=== PATIENT | female | born 1960 | race Caucasian/White ===

== ENCOUNTER 2016-07-08 15:41 | Emergency (ER) | payer BC, MEDICAID ==
[2016-07-08] MEDS ORDERED: Adenosine 12 MG/4 ML SDV IVPUSH ONE (15:48)
[2016-07-08] MEDS ORDERED: Metoprolol Tartrate 25 MG Tab PO ONE (15:48)
--- NOTE | 2016-07-08 15:52 | EDM.PDOC ---
ED HPI GENERAL MEDICAL PROBLEM - General Stated Complaint: SVT Time Seen by Provider: 07/08/16 15:45 Source of Information: Reports: Patient History Limitations: Reports: No limitations - History of Present Illness INITIAL COMMENTS - FREE TEXT/NARRATIVE: Pt presents with racing heart and shortness of breath which started today morning and has not stopped. When it started in the morning her heart rate was in 160s.She did take all her meds in the morning. No nausea or vomiting. No chest pain. Does feel shortness of breath. Has had mild nasal congestion and mild cough for past 3 days. Pt does have history of SVT and was down at [facility] Emergency room on 06/24/16 and did receive Adenosine and the heart rate improved and patient felt better. - Related Data Allergies Allergy/AdvReac Type Severity Reaction Status Date / Time ibuprofen Allergy Abdominal Verified 02/19/16 11:15 Pain prednisone AdvReac Abdominal Verified 02/19/16 11:15 Cramps Home Meds: Home Meds Multivit/Iron/FA/K/Herb No.244 [Alive Women's Energy Mv Tablet] 1 tab PO DAILY 06/23/15 [History] Aspirin [Halfprin] 81 mg PO DAILY tab.ec 06/25/15 [Rx] Cyanocobalamin (Vitamin B12) [Vitamin B12] 1,000 mcg PO DAILY tablet 06/25/15 [ Rx] Metoprolol Tartrate [Lopressor] 25 mg PO BID tablet 06/25/15 [Rx] Omeprazole 20 mg PO ACBREAKFAST cap.cr 06/25/15 [Rx] Insulin Detemir [Levemir Flextouch] 58 units SUBCUT BEDTIME 07/30/15 [History] Insulin Aspart [Novolog] See Protocol SQ TIDMEALS 12/27/15 [History] metFORMIN [Glucophage] 1,000 mg PO BIDMEALS 12/27/15 [History] Past Medical History HEENT History: Reports: Cataract, Impaired vision, Sinusitis, Other (see below) Other HEENT History: eyeglasses for reading Cardiovascular History: Reports: Arrhythmia, Other (see below) 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: Musculoskeletal History: Reports: Arthritis, Other (see below) Other Musculoskeletal History: Tendonitis of right shoulder Endocrine/Metabolic History: Reports: Diabetes, type II Hematologic History: Reports: Blood transfusion(s) - Infectious Disease History Infectious Disease History: Reports: Chicken pox, Measles, Mumps - Past Surgical History HEENT Surgical History: Reports: Cataract surgery Other HEENT Surgeries/Procedures: cataract surgery right eye 10/2012; cataract surgery left eye 02/2015 Endocrine Surgical History: Reports: None Social & Family History - Family History Family Medical History: Noncontributory - Tobacco Use Smoking Status *Q: Former Smoker Years of Tobacco use: 15 Used Tobacco, but Quit: Yes Month Tobacco Last Used: 30 years ago Second Hand Smoke Exposure: No - Alcohol Use Days Per Week of Alcohol Use: 0 - Recreational Drug Use Recreational Drug Use: Yes Drug Use in Last 12 Months: No ED ROS GENERAL - Review of Systems Review Of Systems: See Below Constitutional: Denies: fever, chills HEENT: Reports: Rhinitis, Sinus problem. Denies: Ear pain, Eye discharge, Throat pain, Throat swelling Respiratory: Reports: Shortness of Breath, Cough. Denies: Wheezing, Pleuritic Chest Pain, Sputum Cardiovascular: Reports: Lightheadedness. Denies: Chest pain, Dyspnea on exertion GI/Abdominal: Denies: Abdominal pain, Nausea, Vomiting : Denies: dysuria, flank pain Musculoskeletal: Denies: joint pain, joint swelling Skin: Denies: bruising, pruritis, rash ED EXAM, GENERAL - Physical Exam Exam: See Below Exam Limited By: No limitations General Appearance: alert, WD/WN, no apparent distress Eye Exam: bilateral eye: EOMI, PERRL Ears: normal external exam, normal canal, hearing grossly normal, normal TMs Ear Exam: bilateral ear: auricle normal, canal normal, TM normal Nose: normal inspection, normal mucosa, no blood, nasal drainage (clear) Throat/Mouth: Normal inspection, Normal lips, Normal teeth, Normal gums, Normal oropharynx, Normal voice, No airway compromise Head: atraumatic, normocephalic. No: sinus tenderness Neck: normal inspection, supple, non-tender, full range of motion Respiratory/Chest: no respiratory distress, lungs clear, normal breath sounds, no accessory muscle use, chest non-tender Cardiovascular: normal peripheral pulses, no edema, no gallop, no JVD, no murmur , no rub, tachycardia (heart rate is in 140s) Peripheral Pulses: 2+: carotid (L), carotid (R), radial (L), radial (R) GI/Abdominal: normal bowel sounds, soft, non tender, no organomegaly EKG INTERPRETATION EKG Date: 07/08/16 Rate (beats/min): 137 [place]: normal P-wave: present QRS: normal ST-T: normal QT: normal EKG Interpretation Comments: SVT with heart rat in 137/min Course - Vital Signs Text/Narrative:: Pt's EKG shows SVT and her heart rate is 140s -150 on monitor. She is having shortness of breath. Pt does come into emergency room for her PSVTs. She did receive metoprolol 25 mg extra dose orally. IV was started on she did receive Adenosine 6mg IV followed by !0 ml of Normal saline push. There was a short pause in the monitor followed by hear heart rate down into 60s and gradually came up to 80s and stabilized. CBC appears normal. She does have mild URI , advised zyrtec 10 mg daily. Avoid OTC sinus medications. Pt has had recurrent SVT episodes which do not resolve unless she gets adenosine. She has had several episodes in the past. She has been placed on beta -darwin with no improvement in the episodes. 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 With her recurrent episodes she might need Litigation Examiner evaluation for her recurrent PSVTs in [place].. - Orders/Labs/Meds Orders: Active Orders 24 hr Category Date Time Status EKG Documentation Completion [RC] ASDIRECTED Care 07/08/16 15:46 Ordered Labs: Laboratory Tests 07/08/16 Range/Units 15:55 WBC 8.9 (4.0-11.0) K/uL RBC 5.23 (3.80-5.80) M/uL Hgb 15.3 (11.5-16.5) g/dL Hct 44.4 (37.0-47.0) % MCV 85 (76-96) fL MCH 29.3 (27.0-32.0) pg MCHC 34.5 (31.0-35.0) g/dL RDW 14.0 (11.0-16.0) % Plt Count 266 (150-500) K/uL MPV 10.4 H (6.0-10.0) fL Neut % (Auto) 46.7 (45.0-70.0) % Lymph % (Auto) 41.6 H (20.0-40.0) % [place] % (Auto) 8.7 (3.0-10.0) % Eos % (Auto) 2.7 (1.0-5.0) % Baso % (Auto) 0.3 (0.0-0.5) % Neut # (Auto) 4.17 (2.00-7.50) K/uL Lymph # (Auto) 3.72 (1.50-4.00) K/uL [place] # (Auto) 0.78 (0.20-0.80) K/uL Eos # (Auto) 0.24 (0.04-0.40) K/uL Baso # (Auto) 0.03 (0.02-0.10) K/uL Meds: Medications Discontinued Medications Generic Name Dose Route Start Last Admin Trade Name Freq PRN Reason Stop Dose Admin Adenosine 6 mg 07/08/16 15:48 Adenocard IVPUSH 07/08/16 15:49 NOW ONE Metoprolol Tartrate 25 mg 07/08/16 15:48 Lopressor PO 07/08/16 15:49 ONETIME ONE Departure - Departure Time of Disposition: 16:20 Disposition: Home, Self-Care 01 Clinical Impression: PSVT (paroxysmal supraventricular tachycardia), URI (upper respiratory infection) Additional Instructions: Pt's EKG shows SVT and her heart rate is 140s -150 on monitor. She is having shortness of breath. Pt does come into emergency room for her PSVTs. She did receive metoprolol 25 mg extra dose orally. IV was started on she did receive Adenosine 6mg IV followed by !0 ml of Normal saline push. There was a short pause in the monitor followed by hear heart rate down into 60s and gradually came up to 80s and stabilized. CBC appears normal. She does have mild URI , advised zyrtec 10 mg daily. Avoid OTC sinus medications. Pt has had recurrent SVT episodes which do not resolve unless she gets adenosine. She has had several episodes in the past. She has been placed on beta -darwin with no improvement in the episodes. 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 With her recurrent episodes she might need Litigation Examiner evaluation for her recurrent PSVTs in [place] - Problem List & Annotations (1) Paroxysmal supraventricular tachycardia SNOMED Code(s): 45952254 Code(s): I47.1 - SUPRAVENTRICULAR TACHYCARDIA Status: Acute Current Visit : No Onset Date: 07/29/15 (2) URI (upper respiratory infection) SNOMED Code(s): 35211634 Code(s): J06.9 - ACUTE UPPER RESPIRATORY INFECTION, UNSPECIFIED Status: Acute Current Visit: Yes - Problem List Review Problem List Initiated/Reviewed/Updated: Yes - My Orders Last 24 Hours: My Active Orders 07/08/16 15:46 EKG Documentation Completion [RC] ASDIRECTED - Assessment/Plan Last 24 Hours: My Active Orders 07/08/16 15:46 EKG Documentation Completion [RC] ASDIRECTED Assessment:: PSVT URI Plan: Pt's EKG shows SVT and her heart rate is 140s -150 on monitor. She is having shortness of breath. Pt does come into emergency room for her PSVTs. She did receive metoprolol 25 mg extra dose orally. IV was started on she did receive Adenosine 6mg IV followed by !0 ml of Normal saline push. There was a short pause in the monitor followed by hear heart rate down into 60s and gradually came up to 80s and stabilized. CBC appears normal. She does have mild URI , advised zyrtec 10 mg daily. Avoid OTC sinus medications. Pt has had recurrent SVT episodes which do not resolve unless she gets adenosine. She has had several episodes in the past. She has been placed on beta -darwin with no improvement in the episodes. 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 With her recurrent episodes she might need Litigation Examiner evaluation for her recurrent PSVTs in [place]
[2016-07-08] MEDS ORDERED: Sodium Chloride 0.9% 1,000 ML IV ONE (15:55)
[2016-07-08 18:21] VITALS: BP 101/70
== END 2016-07-08 16:35 | disposition home or self-care (01) ==
LOC: LB.ED 15:41
DX: I47.1 Supraventricular tachycardia (principal); J06.9 Acute upper respiratory infection, unspecified; M19.90 Unspecified osteoarthritis, unspecified site; E11.9 Type 2 diabetes mellitus without complications; Z79.4 Long term (current) use of insulin; Z79.84 Long term (current) use of oral hypoglycemic drugs; Z98.49 Cataract extraction status, unspecified eye; Z87.891 Personal history of nicotine dependence; Z79.82 Long term (current) use of aspirin; Z79.899 Other long term (current) drug therapy; Z88.6 Allergy status to analgesic agent; Z88.8 Allergy status to other drugs, medicaments and biological substances
CPT/HCPCS: 36415; 83036; 85025; 93005; 96374; 99285; A9270; J7040; J0153

== ENCOUNTER 2016-08-13 20:22 | Emergency (ER) | payer MEDICAID ==
[2016-08-13] MEDS ORDERED: LORazepam 1 MG Tab ONE ×3 (21:00→21:18)
[2016-08-13] MEDS ORDERED: LORazepam 1 MG Tab PO ONE (21:04)
--- NOTE | 2016-08-13 21:11 | EDM.PDOC ---
ED HISTORY OF PRESENT ILLNESS - General Chief Complaint: Cardiovascular Problem Stated Complaint: heart palpitations, SOB Time Seen by Provider: 08/13/16 20:30 Source: Reports: Patient History Limitations: Reports: No limitations - History of Present Illness INITIAL COMMENTS - FREE TEXT/NARRATIVE: According to patient, she has been having palpitation and feeling short of breath all day since 9 Am today. Pt does have history of PSVT and having Ablation done on 08/17/16. she claims her heart rate was 118/min and her Bp was as high as 190 systolic. She did get worried and concerned and hence came into the emergency room. No chest pain or tightness. 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 she is very anxious. - Related Data Allergies/ADRs: Allergies Allergy/AdvReac Type Severity Reaction Status Date / Time ibuprofen Allergy Abdominal Verified 07/08/16 18:05 Pain prednisone AdvReac Abdominal Verified 07/08/16 18:05 Cramps Home Meds: Home Meds Multivit/Iron/FA/K/Herb No.244 [Alive Women's Energy Mv Tablet] 1 tab PO DAILY 06/23/15 [History] Aspirin [Halfprin] 81 mg PO DAILY tab.ec 06/25/15 [Rx] Omeprazole 20 mg PO ACBREAKFAST cap.cr 06/25/15 [Rx] Insulin Detemir [Levemir Flextouch] 26 units SUBCUT BEDTIME 07/30/15 [History] Insulin Aspart [Novolog] See Protocol SQ TIDMEALS 12/27/15 [History] metFORMIN [Glucophage] 1,000 mg PO BIDMEALS 12/27/15 [History] Cyanocobalamin (Vitamin B12) [Vitamin B12] 500 mcg PO BID 07/08/16 [History] Metoprolol Succinate [Toprol XL] 25 mg PO BID 07/08/16 [History] Past Medical History HEENT History: Reports: Cataract, Impaired vision, Sinusitis, Other (see below) Other HEENT History: eyeglasses for reading Cardiovascular History: Reports: Arrhythmia, Other (see below) Other Cardiovascular 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: Musculoskeletal History: Reports: Arthritis, Other (see below) Other Musculoskeletal History: Tendonitis of right shoulder Endocrine/Metabolic History: Reports: Diabetes, type II Hematologic History: Reports: Blood transfusion(s) - Infectious Disease History Infectious Disease History: Reports: Chicken pox, Measles, Mumps - Past Surgical History HEENT Surgical History: Reports: Cataract surgery Other HEENT Surgeries/Procedures: cataract surgery right eye 10/2012; cataract surgery left eye 02/2015 Endocrine Surgical History: Reports: None Social & Family History - Family History Family Medical History: Noncontributory - Tobacco Use Smoking Status *Q: Former Smoker Years of Tobacco use: 15 Used Tobacco, but Quit: Yes Month Tobacco Last Used: 30 years ago Second Hand Smoke Exposure: No - Alcohol Use Days Per Week of Alcohol Use: 0 - Recreational Drug Use Recreational Drug Use: Yes Drug Use in Last 12 Months: No ED ROS GENERAL - Review of Systems Review Of Systems: See Below Constitutional: Denies: fever, chills, night sweats, diaphoresis HEENT: Denies: Glasses, Hearing loss Respiratory: Reports: Shortness of Breath. Denies: Cough, Sputum Cardiovascular: Denies: Chest pain, Edema, Lightheadedness GI/Abdominal: Denies: Abdominal pain, Nausea, Vomiting : Denies: dysuria, urinary retention Musculoskeletal: Denies: shoulder pain Skin: Denies: pruritis, rash ED EXAM, GENERAL - Physical Exam Exam: See Below Exam Limited By: No limitations General Appearance: alert, WD/WN, no apparent distress, anxious Eye Exam: bilateral eye: EOMI, PERRL Ears: normal external exam, normal canal, hearing grossly normal, normal TMs Nose: normal inspection, normal mucosa, no blood Throat/Mouth: Normal inspection, Normal lips, Normal teeth, Normal gums, Normal oropharynx, Normal voice, No airway compromise Head: atraumatic, normocephalic Neck: normal inspection, supple, non-tender, full range of motion Respiratory/Chest: no respiratory distress, lungs clear, normal breath sounds, no accessory muscle use, chest non-tender Cardiovascular: normal peripheral pulses, regular rate, rhythm, no edema, no gallop, no JVD, no murmur, no rub Peripheral Pulses: 2+: radial (L), radial (R) Course - Vital Signs Text/Narrative:: Pt was placed on athletic monitor. her heart rate has been in low 100s to 80s. her BP did come down and her last Bp was 156/64mmhg. Pt was reassured that she does not need adenosine therapy. I have advised her to stay calm and avoid [id number] checking her pulse. She did receive ativan 1mg tonight. Also have given 3 tablets to take home and use as needed. If she feels lightheaded, nausea , chest pain or tightness with palpitations needs to come home. - Orders/Labs/Meds Orders: Active Orders 24 hr Category Date Time Status LORazepam [Ativan] Med 08/13/16 21:04 Once 1 mg PO ONETIME ONE Medication Orders Lorazepam (Ativan) 1 mg PO ONETIME ONE Stop: 08/13/16 21:05 Meds: Medications Generic Name Dose Route Start Last Admin Trade Name Freq PRN Reason Stop Dose Admin Lorazepam 1 mg 08/13/16 21:04 Ativan PO 08/13/16 21:05 ONETIME ONE Discontinued Medications Generic Name Dose Route Start Last Admin Trade Name Freq PRN Reason Stop Dose Admin Lorazepam Confirm 08/13/16 21:02 Ativan Administered 08/13/16 21:03 Dose 1 mg .ROUTE .STK-MED ONE Departure - Departure Time of Disposition: 21:30 Disposition: Home, Self-Care 01 Condition: good Clinical Impression: Sinus tachycardia, Anxiety Forms: ED Department Discharge - Problem List & Annotations (1) Anxiety SNOMED Code(s): 58773834 Code(s): F41.9 - ANXIETY DISORDER, UNSPECIFIED Status: Acute Current Visit: Yes (2) Sinus tachycardia SNOMED Code(s): 16421718 Code(s): R00.0 - TACHYCARDIA, UNSPECIFIED Status: Acute Current Visit: Yes - Problem List Review Problem List Initiated/Reviewed/Updated: Yes - My Orders Last 24 Hours: My Active Orders 08/13/16 21:04 LORazepam [Ativan] 1 mg PO ONETIME ONE - Assessment/Plan Last 24 Hours: My Active Orders 08/13/16 21:04 LORazepam [Ativan] 1 mg PO ONETIME ONE Assessment:: Sinus tachycardia Plan: Pt was placed on athletic monitor. her heart rate has been in low 100s to 80s. her BP did come down and her last Bp was 156/64mmhg. Pt was reassured that she does not need adenosine therapy. I have advised her to stay calm and avoid [id number] checking her pulse. She did receive ativan 1mg tonight. Also have given 3 tablets to take home and use as needed. If she feels lightheaded, nausea , chest pain or tightness with palpitations needs to come home
[2016-08-13 23:35] VITALS: BP 145/69
== END 2016-08-13 21:50 | disposition home or self-care (01) ==
LOC: LB.ED 20:22
DX: R00.0 Tachycardia, unspecified (principal); F41.9 Anxiety disorder, unspecified; M19.90 Unspecified osteoarthritis, unspecified site; E11.9 Type 2 diabetes mellitus without complications; Z98.41 Cataract extraction status, right eye; Z98.42 Cataract extraction status, left eye; Z87.891 Personal history of nicotine dependence; Z88.6 Allergy status to analgesic agent; Z79.82 Long term (current) use of aspirin; Z79.899 Other long term (current) drug therapy; Z79.4 Long term (current) use of insulin; Z79.84 Long term (current) use of oral hypoglycemic drugs
CPT/HCPCS: 99284; A9270

== ENCOUNTER 2016-11-23 18:35 | Emergency (ER) | payer MEDICAID, OTHER ==
[2016-11-23] MEDS ORDERED: Acetaminophen/HYDROcodone 325-5 MG Tab ONE (18:40)
[2016-11-23] MEDS ORDERED: Ketorolac 30 MG/ML SDV ONE (21:15)
[2016-11-24 01:16] VITALS: BP 173/99
--- NOTE | 2016-11-24 09:24 | CR ---
DATE OF SERVICE: 11/23/16 CLINICAL DATA: RIGHT HIP PAIN RIGHT HIP: There are mild osteoarthritic changes of the right hip joint. There are degenerative changes involving the right SI joint and symphysis pubis. No acute fracture or dislocation. No focal lytic or blastic bone lesions. [id number] [facility]
--- NOTE | 2016-11-24 17:21 | EDM.PDOC ---
ED HPI GENERAL MEDICAL PROBLEM - General Chief Complaint: General Stated Complaint: HIP PAIN Time Seen by Provider: 11/23/16 21:30 Source of Information: Reports: Patient History Limitations: Reports: No Limitations - History of Present Illness INITIAL COMMENTS - FREE TEXT/NARRATIVE: This is a 56yo F here for severe right hip pain. Patient states she has had hip pain in the past but the most recent discomfort started the past few days and it has gotten worse and she is having great difficulty walking due to the pain on movement. Onset: Gradual Duration: Day(s):, Getting Worse Location: Reports: Lower Extremity, Right Improves with: Reports: Immobilization, Rest Worsens with: Reports: Movement Context: Reports: Activity Associated Symptoms: Reports: No Other Symptoms - Related Data Allergies Allergy/AdvReac Type Severity Reaction Status Date / Time ibuprofen AdvReac Abdominal Verified 11/24/16 00:03 Pain prednisone AdvReac Abdominal Verified 11/24/16 00:03 Cramps Home Meds: Home Meds Multivit/Iron/FA/K/Herb No.244 [Alive Women's Energy Mv Tablet] 1 tab PO DAILY 06/23/15 [History] Aspirin [Halfprin] 81 mg PO DAILY tab.ec 06/25/15 [Rx] Omeprazole 20 mg PO ACBREAKFAST cap.cr 06/25/15 [Rx] Insulin Detemir [Levemir Flextouch] 26 units SUBCUT BEDTIME 07/30/15 [History] Insulin Aspart [Novolog] See Protocol SQ TIDMEALS 12/27/15 [History] metFORMIN [Glucophage] 1,000 mg PO BIDMEALS 12/27/15 [History] Cyanocobalamin (Vitamin B12) [Vitamin B12] 500 mcg PO BID 07/08/16 [History] Metoprolol Succinate [Toprol XL] 25 mg PO BID 07/08/16 [History] Past Medical History HEENT History: Reports: Cataract, Impaired Vision, Sinusitis, Other (See Below) Other HEENT History: eyeglasses for reading Cardiovascular History: Reports: Arrhythmia, Other (See Below) 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: Musculoskeletal History: Reports: Arthritis, Other (See Below) Other Musculoskeletal History: Tendonitis of right shoulder Endocrine/Metabolic History: Reports: Diabetes, Type II Hematologic History: Reports: Blood Transfusion(s) - Infectious Disease History Infectious Disease History: Reports: Chicken Pox, Measles, Mumps - Past Surgical History HEENT Surgical History: Reports: Cataract Surgery Social & Family History - Family History Family Medical History: Noncontributory - Tobacco Use Smoking Status *Q: Former Smoker Years of Tobacco use: 15 Used Tobacco, but Quit: Yes Month Tobacco Last Used: 30 years ago Second Hand Smoke Exposure: No - Caffeine Use Caffeine Use: Reports: Soda - Alcohol Use Days Per Week of Alcohol Use: 0 - Recreational Drug Use Recreational Drug Use: Yes Drug Use in Last 12 Months: No ED ROS GENERAL - Review of Systems Review Of Systems: ROS reveals no pertinent complaints other than HPI. ED EXAM, GENERAL - Physical Exam Exam: See Below Exam Limited By: No Limitations General Appearance: Alert, WD/WN, Moderate Distress Eye Exam: Bilateral Eye: EOMI Ears: Normal External Exam Nose: Normal Inspection Throat/Mouth: Normal Inspection Head: Atraumatic, Normocephalic Respiratory/Chest: No Respiratory Distress Cardiovascular: Normal Peripheral Pulses Peripheral Pulses: 2+: Femoral (L), Femoral (R), Popliteal (L), Popliteal (R), Posterior Tibial (L), Posterior Tibial (R), Dorsalis Pedis (L), Dorsalis Pedis ( R) GI/Abdominal: Normal Bowel Sounds Extremities: Normal Inspection, Other (right hip pain with internal and external rotation, flexion and extension of the posterior hip joint) Neurological: Alert, Oriented, CN II-XII Intact Psychiatric: Normal Affect, Normal Mood Skin Exam: Warm, Dry, Intact Course - Vital Signs Last Recorded V/S: Last Vital Signs Temp 35.5 C 11/24/16 01:15 Pulse 52 L 11/24/16 01:15 Resp 16 11/24/16 01:15 BP 173/99 H 11/24/16 01:15 Pulse Ox 98 11/24/16 01:15 - Orders/Labs/Meds Meds: Medications Discontinued Medications Generic Name Dose Route Start Last Admin Trade Name Nazario PRN Reason Stop Dose Admin Hydrocodone Bitart/Acetaminophen 10 tab 11/23/16 18:40 [place] 325-5 Mg .ROUTE 11/23/16 18:41 .STK-MED ONE Ketorolac Tromethamine Confirm 11/23/16 21:15 11/23/16 21:05 Toradol Administered 11/23/16 21:16 30 mg Dose Administration 30 mg .ROUTE .STK-MED ONE Departure - Departure Time of Disposition: 22:15 Disposition: Home, Self-Care 01 Condition: Fair Clinical Impression: Right hip pain - Discharge Information Referrals: PCP,None [Primary Care Provider] - Forms: ED Department Discharge Additional Instructions: Drink plenty of fluids and get plenty of rest. Light activity as tolerated. Take provided Vicodin as directed: 1 tablet by mouth every 4-6 hours as needed for pain. You will called tomorrow morning about the time your injection with Dr. Aguilar is scheduled for. Follow up with regular provider as needed. Call with any questions. - Problem List Review Problem List Initiated/Reviewed/Updated: Yes - Assessment/Plan Plan: Counseled on plan for supportive and conservative management. We will setup for hip injection as discussed. Likely may not qualify for tomorrow as she has been on aspirin but if not will schedule for the next visit or check with [facility]. F/ u as directed and as needed. Work note written for 7 days off and re-evaluate.
== END 2016-11-23 21:40 | disposition home or self-care (01) ==
LOC: LB.ED 18:35
DX: M25.551 Pain in right hip (principal); E11.9 Type 2 diabetes mellitus without complications; M19.90 Unspecified osteoarthritis, unspecified site; Z79.82 Long term (current) use of aspirin; Z79.84 Long term (current) use of oral hypoglycemic drugs; Z79.4 Long term (current) use of insulin; Z88.5 Allergy status to narcotic agent; Z98.49 Cataract extraction status, unspecified eye; Z87.891 Personal history of nicotine dependence
CPT/HCPCS: 73502; 99283; A9270; J1885

== ENCOUNTER → 2019-03-05 | Outpatient (CLI) | payer MEDICAID | LOC: LB.CLINIC 13:25 | PROVIDERS: ATTEND Family Medicine | DX: R30.0 Dysuria (principal); J06.0 Acute laryngopharyngitis; R10.9 Unspecified abdominal pain; M54.9 Dorsalgia, unspecified | CPT/HCPCS: 36415; 80053; 81003; 83690; 85025 ==

== ENCOUNTER 2019-12-19 20:16 | Emergency (ER) | payer BC, MEDICAID, OTHER ==
[2019-12-19 20:52] VITALS: BP 170/99; PULSE 99
[2019-12-19] MEDS ORDERED: Sodium Chloride 0.9% 10 ML Syringe FLUSH PRN (20:56)
--- NOTE | 2019-12-19 21:14 | EDM.PDOC ---
ED HPI GENERAL MEDICAL PROBLEM - General Chief Complaint: General Stated Complaint: LOW BLOOD SUGAR Time Seen by Provider: 12/19/19 20:40 - History of Present Illness INITIAL COMMENTS - FREE TEXT/NARRATIVE: BS 74 at 1730 prior to eating, patient took 25units of novolog and ate. She checked her BS again at 1999 as she felt shaky, nauseated, [place], confused, and had blurry vision. BS in ED on arrival was 72. She has been taking the same dose of novolog for quite some time, but feels she has been having hypoglycemic episodes off and onfor the past 5 weeks. Also c/o foul smelling, dark urine and RUQ pain intermittently after eating, this feels similar as the time she had pancreatitis but not as severe. Back Pain Score (Numeric/FACES): 3 - Related Data Allergies Allergy/AdvReac Type Severity Reaction Status Date / Time gabapentin Allergy Elevated Verified 10/25/17 06:23 Blood Glucose ibuprofen AdvReac Abdominal Verified 11/24/16 00:03 Pain prednisone AdvReac Abdominal Verified 11/24/16 00:03 Cramps Home Meds: Home Meds Insulin Aspart [Novolog] See Protocol SQ TIDMEALS 12/27/15 [History] metFORMIN [Glucophage] 1,000 mg PO BIDMEALS 12/27/15 [History] Omeprazole 20 mg PO DAILY 04/22/17 [History] Insulin Detemir [Levemir] 65 units SQ BEDTIME 10/25/17 [History] Acetaminophen/oxyCODONE [Percocet 325-5 MG] 1 tab PO Q6HR #120 tablet 10/27/17 [Rx] Past Medical History HEENT History: Reports: Cataract, Impaired Vision, Sinusitis, Other (See Below) Other HEENT History: eyeglasses for reading Cardiovascular History: Reports: Arrhythmia, SOB on Exertion, Other (See Below) Other Cardiovascular History: SVT Respiratory History: Reports: Asthma, Sleep Apnea Gastrointestinal History: Reports: Chronic Constipation, Chronic Diarrhea, GERD, Pancreatitis, [employer] History: Reports: Musculoskeletal History: Reports: Arthritis, Back Pain, Chronic, Other (See Below) Other Musculoskeletal History: Tendonitis of right shoulder Psychiatric History: Reports: Anxiety, Psych Hospitalization(s) Endocrine/Metabolic History: Reports: Diabetes, Type II, Obesity/BMI 30+ Hematologic History: Reports: Blood Transfusion(s) - Infectious Disease History Infectious Disease History: Reports: Chicken Pox, Measles, Mumps, Rubella, Shingles - Past Surgical History HEENT Surgical History: Reports: Cataract Surgery Cardiovascular Surgical History: Reports: Other (See Below) Other Cardiovascular Surgeries/Procedures: ablation 08/2015 Respiratory Surgical History: Reports: None GI Surgical History: Reports: Appendectomy, Cholecystectomy, Colonoscopy, EGD Female Surgical History: Reports: Tubal Ligation Endocrine Surgical History: Reports: None Musculoskeletal Surgical History: Reports: Carpal Tunnel Dermatological Surgical History: Reports: None Social & Family History - Family History Family Medical History: Noncontributory Cardiac: Reports: Heart Failure, [place] Neurological: Reports: CVA Endocrine/Metabolic: Reports: Diabetes, type II - Caffeine Use Caffeine Use: Reports: None ED ROS GENERAL - Review of Systems Review Of Systems: See Below Constitutional: Reports: No Symptoms HEENT: Reports: Vision Change Respiratory: Reports: No Symptoms Cardiovascular: Reports: No Symptoms Endocrine: Reports: Low Glucose, Polydypsia, Polyuria GI/Abdominal: Reports: Abdominal Pain, Nausea : Reports: Flank Pain (bilateral flank pain), Frequency (dark in color, foul smelling) Musculoskeletal: Reports: No Symptoms Skin: Reports: No Symptoms Neurological: Reports: No Symptoms Psychiatric: Reports: Anxiety ED EXAM, GENERAL - Physical Exam Exam: See Below Exam Limited By: No Limitations General Appearance: Alert, WD/WN, Anxious Eye Exam: Bilateral Eye: PERRL, Vision Changes (reports blurred vision) Ears: Normal External Exam Nose: Normal Inspection Throat/Mouth: Normal Inspection, Normal Teeth, Normal Voice Head: Atraumatic Neck: Normal Inspection, Non-Tender Respiratory/Chest: No Respiratory Distress, Lungs Clear, Normal Breath Sounds Cardiovascular: Normal Peripheral Pulses, No Edema, No JVD, No Murmur, Tachycardia Peripheral Pulses: 3+: Radial (L), Radial (R), Posterior Tibial (L), Posterior Tibial (R) GI/Abdominal: Normal Bowel Sounds, Soft, Tender (RUQ with deep palpitation) (Female) Exam: Deferred Rectal (Female) Exam: Deferred Back Exam: Full Range of Motion, CVA Tenderness (R), CVA Tenderness (L) Extremities: Normal Inspection, Normal Range of Motion, No Pedal Edema, Normal Capillary Refill Neurological: Alert, Oriented, Normal Gait, Normal Reflexes, No Motor/Sensory Deficits Psychiatric: Normal Affect, Anxious Skin Exam: Warm, Dry, Intact Course - Vital Signs Last Recorded V/S: Last Vital Signs Temp 97.5 F 12/19/19 20:27 Pulse 99 12/19/19 20:27 Resp 20 12/19/19 20:27 BP 170/99 H 12/19/19 20:27 Pulse Ox 99 12/19/19 20:27 - Orders/Labs/Meds Orders: Active Orders 24 hr Category Date Time Status CULTURE URINE [RM] Stat Lab 12/19/19 21:05 Received Sodium Chloride 0.9% [Saline Flush] Med 12/19/19 20:56 Active 10 ml FLUSH ASDIRECTED PRN Peripheral IV Insertion Adult [OM.PC] Routine Oth 12/19/19 20:56 Ordered Medication Orders Sodium Chloride (Saline Flush) 10 ml FLUSH ASDIRECTED PRN PRN Reason: Keep Vein Open Labs: Laboratory Tests 12/19/19 12/19/19 12/19/19 Range/Units 19:31 20:54 20:54 WBC 14.1 H D (4.0-11.0) K/uL RBC 5.10 (3.80-5.80) M/uL Hgb 14.8 (11.5-16.5) g/dL Hct 45.1 (37.0-47.0) % MCV 88 (76-96) fL MCH 29.0 (27.0-32.0) pg MCHC 32.8 (31.0-35.0) g/dL RDW 14.3 (11.0-16.0) % Plt Count 247 (150-500) K/uL MPV 10.7 H (6.0-10.0) fL Neut % (Auto) 68.0 (45.0-70.0) % Lymph % (Auto) 23.3 (20.0-40.0) % [place] % (Auto) 6.7 (3.0-10.0) % Eos % (Auto) 1.6 (1.0-5.0) % Baso % (Auto) 0.4 (0.0-0.5) % Neut # (Auto) 9.54 H (2.00-7.50) K/uL Lymph # (Auto) 3.28 (1.50-4.00) K/uL [place] # (Auto) 0.94 H (0.20-0.80) K/uL Eos # (Auto) 0.23 (0.04-0.40) K/uL Baso # (Auto) 0.06 (0.02-0.10) K/uL Sodium 143 (136-145) mmol/L Potassium 3.8 (3.5-5.1) mmol/L Chloride 105 (98-107) mmol/L Carbon Dioxide 31.3 (21.0-32.0) mmol/L Anion Gap 10.5 (5.0-15.0) mmol/L BUN 13 (8-26) mg/dL Creatinine 1.06 H (0.55-1.02) mg/dL Est Cr Clr Drug Dosing 49.35 mL/min Estimated GFR (MDRD) 53 L (>60) MLS/MIN BUN/Creatinine Ratio 12.3 (6-25) Glucose 64 L D (74-100) mg/dL POC Glucose 74 (74-110) mg/dL Calcium 8.8 (8.5-10.1) mg/dL Total Bilirubin 0.4 (0.0-1.0) mg/dL AST 23 (15-37) U/L ALT 35 (12-78) U/L Alkaline Phosphatase 86 (46-116) U/L Total Protein 7.7 (6.4-8.2) g/dL Albumin 3.1 L (3.4-5.0) g/dL Globulin 4.6 H (2.2-4.2) g/dL Albumin/Globulin Ratio 0.7 L (0.8-2.0) Lipase 136 D (73-393) U/L Urine Color Urine Appearance (CLEAR) Urine pH (5.0-8.0) Ur Specific [place] (1.003-1.030) Urine Protein (NEGATIVE) mg/dL Urine Glucose (UA) (NEGATIVE) mg/dL Urine Ketones (NEGATIVE) mg/dL Urine Occult Blood (NEGATIVE) Urine Nitrite (NEGATIVE) Urine Bilirubin (NEGATIVE) Urine Urobilinogen (0.2-1.0) E.U./dL Ur Leukocyte Esterase (NEGATIVE) U Hyaline Cast (Auto) /HPF Urine RBC /HPF Urine WBC /HPF Urine WBC Clumps /HPF Ur Squamous Epith Cells /HPF Urine Bacteria /HPF 12/19/19 Range/Units 21:05 WBC (4.0-11.0) K/uL RBC (3.80-5.80) M/uL Hgb (11.5-16.5) g/dL Hct (37.0-47.0) % MCV (76-96) fL MCH (27.0-32.0) pg MCHC (31.0-35.0) g/dL RDW (11.0-16.0) % Plt Count (150-500) K/uL MPV (6.0-10.0) fL Neut % (Auto) (45.0-70.0) % Lymph % (Auto) (20.0-40.0) % [place] % (Auto) (3.0-10.0) % Eos % (Auto) (1.0-5.0) % Baso % (Auto) (0.0-0.5) % Neut # (Auto) (2.00-7.50) K/uL Lymph # (Auto) (1.50-4.00) K/uL [place] # (Auto) (0.20-0.80) K/uL Eos # (Auto) (0.04-0.40) K/uL Baso # (Auto) (0.02-0.10) K/uL Sodium (136-145) mmol/L Potassium (3.5-5.1) mmol/L Chloride (98-107) mmol/L Carbon Dioxide (21.0-32.0) mmol/L Anion Gap (5.0-15.0) mmol/L BUN (8-26) mg/dL Creatinine (0.55-1.02) mg/dL Est Cr Clr Drug Dosing mL/min Estimated GFR (MDRD) (>60) MLS/MIN BUN/Creatinine Ratio (6-25) Glucose (74-100) mg/dL POC Glucose (74-110) mg/dL Calcium (8.5-10.1) mg/dL Total Bilirubin (0.0-1.0) mg/dL AST (15-37) U/L ALT (12-78) U/L Alkaline Phosphatase (46-116) U/L Total Protein (6.4-8.2) g/dL Albumin (3.4-5.0) g/dL Globulin (2.2-4.2) g/dL Albumin/Globulin Ratio (0.8-2.0) Lipase (73-393) U/L Urine Color Yellow Urine Appearance Clear (CLEAR) Urine pH 5.5 (5.0-8.0) Ur Specific [place] 1.020 (1.003-1.030) Urine Protein Negative (NEGATIVE) mg/dL Urine Glucose (UA) Negative (NEGATIVE) mg/dL Urine Ketones Trace H (NEGATIVE) mg/dL Urine Occult Blood Negative (NEGATIVE) Urine Nitrite Negative (NEGATIVE) Urine Bilirubin Small H (NEGATIVE) Urine Urobilinogen 2.0 H (0.2-1.0) E.U./dL Ur Leukocyte Esterase Moderate H (NEGATIVE) U Hyaline Cast (Auto) Few /HPF Urine RBC 0-5 H /HPF Urine WBC 40-50 H /HPF Urine WBC Clumps Moderate /HPF Ur Squamous Epith Cells Moderate /HPF Urine Bacteria Moderate H /HPF Meds: Medications Generic Name Dose Route Start Last Admin Trade Name Freq PRN Reason Stop Dose Admin Sodium Chloride 10 ml 12/19/19 20:56 Saline Flush FLUSH ASDIRECTED PRN Keep Vein Open Departure - Departure Time of Disposition: 23:05 Disposition: Home, Self-Care 01 Clinical Impression: Hypoglycemia, UTI, Urinary tract infectious disease - Discharge Information *PRESCRIPTION DRUG MONITORING PROGRAM REVIEWED*: Not Applicable *COPY OF PRESCRIPTION DRUG MONITORING REPORT IN PATIENT DINAH: Not Applicable Referrals: PCP,None [Primary Care Provider] - Forms: ED Department Discharge Additional Instructions: Start the keflex tonight, then take 1 tablet twice daily for 10 days. Drink plenty of fluids. Hold your bedtime insulin as we discussed and eat a snack.. Call Dr. Jeronimo's clinic tomorrow and follow up Tuesday for insulin dosage check. Return to ED for any increased or new concerning symptoms. Sepsis Event Note (ED) - Evaluation Sepsis Screening Result: No Definite Risk - Focused Exam Vital Signs: Vital Signs Temp Pulse Resp BP Pulse Ox 12/19/19 20:27 97.5 F 99 20 170/99 H 99 12/19/19 20:25 96 20 170/99 H 97 - Problem List Review Problem List Initiated/Reviewed/Updated: Yes - My Orders Last 24 Hours: My Active Orders 12/19/19 20:56 Sodium Chloride 0.9% [Saline Flush] 10 ml FLUSH ASDIRECTED PRN Peripheral IV Insertion Adult [OM.PC] Routine 12/19/19 21:05 CULTURE URINE [RM] Stat - Assessment/Plan Last 24 Hours: My Active Orders 12/19/19 20:56 Sodium Chloride 0.9% [Saline Flush] 10 ml FLUSH ASDIRECTED PRN Peripheral IV Insertion Adult [OM.PC] Routine 12/19/19 21:05 CULTURE URINE [RM] Stat Plan: Patient is requesting to go home, she states she feels baseline. BS now 82, patient comfortable going home with and skipping bedtime insulin. She will call Dr. Jeronimo in the AM for follow up appointment tomorrow.
[2019-12-19] MEDS ORDERED: Cephalexin 500 MG Cap ONE (23:00)
== END 2019-12-19 23:15 | disposition home or self-care (01) ==
LOC: LB.ED 20:16
DX: N39.0 Urinary tract infection, site not specified (principal); E66.9 Obesity, unspecified; E11.649 Type 2 diabetes mellitus with hypoglycemia without coma; K21.9 Gastro-esophageal reflux disease without esophagitis; J45.909 Unspecified asthma, uncomplicated; Z79.899 Other long term (current) drug therapy; Z68.34 Body mass index [BMI] 34.0-34.9, adult; Z88.6 Allergy status to analgesic agent; Z88.8 Allergy status to other drugs, medicaments and biological substances; Z79.4 Long term (current) use of insulin
CPT/HCPCS: 36415; 80053; 81001; 82962; 83690; 85025; 87086; 99284; A9270; 99283

== ENCOUNTER 2020-04-03 14:25 | Emergency (ER) | payer BC ==
[2020-04-03 15:05] VITALS: BP 143/80; PULSE 83
--- NOTE | 2020-04-03 15:59 | EDM.PDOC ---
ED HPI GENERAL MEDICAL PROBLEM - General Chief Complaint: General Stated Complaint: Sore throat Time Seen by Provider: 04/03/20 15:15 Source of Information: Reports: Patient History Limitations: Reports: No Limitations - History of Present Illness INITIAL COMMENTS - FREE TEXT/NARRATIVE: 60 year old female presents with 2 weeks of a sore throat. Is currently being treated for sinus infection with bactrim. Patient states she feels pain when she swallows and feels her throat is swollen. Was unable to get an appointment in the clinic. She felt slightly SOB earlier today, but denies any SOB at this time. Denies CP, cough, fever, diarrhea. Duration: Week(s): (2) Location: Reports: Neck Quality: Reports: Sharp Severity: Mild Improves with: Reports: None Worsens with: Reports: None Associated Symptoms: Reports: No Other Symptoms 3 Pain Score (Numeric/FACES): 3 - Related Data Allergies Allergy/AdvReac Type Severity Reaction Status Date / Time gabapentin Allergy Elevated Verified 10/25/17 06:23 Blood Glucose ibuprofen AdvReac Abdominal Verified 11/24/16 00:03 Pain prednisone AdvReac Abdominal Verified 11/24/16 00:03 Cramps Home Meds: Home Meds Insulin Aspart [Novolog] See Protocol SQ TIDMEALS 12/27/15 [History] metFORMIN [Glucophage] 1,000 mg PO BIDMEALS 12/27/15 [History] Omeprazole 20 mg PO DAILY 04/22/17 [History] Insulin Detemir [Levemir] 65 units SQ BEDTIME 10/25/17 [History] Acetaminophen/oxyCODONE [Percocet 325-5 MG] 1 tab PO Q6HR #120 tablet 10/27/17 [Rx] Past Medical History HEENT History: Reports: Cataract, Impaired Vision, Sinusitis, Other (See Below) Other HEENT History: eyeglasses for reading Cardiovascular History: Reports: Arrhythmia, SOB on Exertion, Other (See Below) Other Cardiovascular History: SVT Respiratory History: Reports: Asthma, Sleep Apnea Gastrointestinal History: Reports: Chronic Constipation, Chronic Diarrhea, GERD, Pancreatitis, [employer] History: Reports: Musculoskeletal History: Reports: Arthritis, Back Pain, Chronic, Other (See Below) Other Musculoskeletal History: Tendonitis of right shoulder Psychiatric History: Reports: Anxiety, Psych Hospitalization(s) Endocrine/Metabolic History: Reports: Diabetes, Type II, Obesity/BMI 30+ Hematologic History: Reports: Blood Transfusion(s) - Infectious Disease History Infectious Disease History: Reports: Chicken Pox, Measles, Mumps, Rubella, Shingles - Past Surgical History HEENT Surgical History: Reports: Cataract Surgery Other HEENT Surgeries/Procedures: cataract surgery right eye 10/2012; cataract surgery left eye 02/2015 Cardiovascular Surgical History: Reports: Other (See Below) Other Cardiovascular Surgeries/Procedures: ablation 08/2015 Respiratory Surgical History: Reports: None GI Surgical History: Reports: Appendectomy, Cholecystectomy, Colonoscopy, EGD Female Surgical History: Reports: Tubal Ligation Endocrine Surgical History: Reports: None Musculoskeletal Surgical History: Reports: Carpal Tunnel Dermatological Surgical History: Reports: None Social & Family History - Family History Family Medical History: No Pertinent Family History Cardiac: Reports: Heart Failure, [place] Neurological: Reports: CVA Endocrine/Metabolic: Reports: Diabetes, type II - Tobacco Use Tobacco Use Status *Q: Never Tobacco User - Caffeine Use Caffeine Use: Reports: None ED ROS GENERAL - Review of Systems Review Of Systems: See Below Constitutional: Reports: No Symptoms HEENT: Reports: No Symptoms Respiratory: Reports: No Symptoms Cardiovascular: Reports: No Symptoms Endocrine: Reports: No Symptoms GI/Abdominal: Reports: No Symptoms : Reports: No Symptoms Musculoskeletal: Reports: No Symptoms Skin: Reports: No Symptoms Neurological: Reports: No Symptoms Psychiatric: Reports: No Symptoms Hematologic/Lymphatic: Reports: No Symptoms Immunologic: Reports: No Symptoms ED EXAM, GENERAL - Physical Exam Exam: See Below Free Text/Narrative:: On exam patient's tonsils are of normal size, no beefy red swelling noted. Feel s her throat is swollen, pain increased with swallowing. No obvious abscess noted. Patient has a thick neck, no palpable lymph swelling. Able to speak in full sentences, swallow, and denies SOB. Exam Limited By: No Limitations General Appearance: Alert, No Apparent Distress Eye Exam: Bilateral Eye: Normal Inspection, PERRL Ears: Normal External Exam, Normal Canal, Hearing Grossly Normal, Normal TMs Ear Exam: Bilateral Ear: Canal Normal, TM normal Nose: Normal Inspection, Normal Mucosa, No Blood Throat/Mouth: Normal Inspection, Normal Lips, Normal Teeth, Normal Gums, Normal Oropharynx, Normal Voice, No Airway Compromise Head: Atraumatic Neck: Normal Inspection, Non-Tender, Full Range of Motion. No: Lymphadenopathy (R), Lymphadenopathy (L) Respiratory/Chest: No Respiratory Distress, Lungs Clear, Normal Breath Sounds, No Accessory Muscle Use Cardiovascular: Normal Peripheral Pulses, Regular Rate, Rhythm, No JVD GI/Abdominal: Normal Bowel Sounds, Soft Back Exam: Full Range of Motion Extremities: Normal Range of Motion Neurological: Alert, Oriented, Normal Cognition, No Motor/Sensory Deficits Psychiatric: Normal Affect, Normal Mood Skin Exam: Warm, Dry, Intact, Normal Color Lymphatic: No Adenopathy Course - Vital Signs Last Recorded V/S: Last Vital Signs Temp 97.6 F 04/03/20 14:59 Pulse 83 04/03/20 14:59 Resp 16 04/03/20 14:59 BP 143/80 H 04/03/20 14:59 Pulse Ox 98 04/03/20 14:59 - Orders/Labs/Meds Orders: Active Orders 24 hr Category Date Time Status Soft Tissue Neck wo Cont [CT] Stat Exams 04/03/20 15:05 Ordered CULTURE STREP A CONFIRMATION [RM] Stat Lab 04/03/20 14:55 Results STREP SCRN A RAPID W CULT CONF [RM] Stat Lab 04/03/20 14:47 Ordered Labs: Laboratory Tests 04/03/20 Range/Units 14:50 SARS CoV-2 RNA Rapid DOMINICK Negative Departure - Departure Time of Disposition: 16:08 Disposition: Home, Self-Care 01 Condition: Good Clinical Impression: Sore throat - Discharge Information *PRESCRIPTION DRUG MONITORING PROGRAM REVIEWED*: Not Applicable *COPY OF PRESCRIPTION DRUG MONITORING REPORT IN PATIENT DINAH: Not Applicable Instructions: Pharyngitis, [id number] Referrals: PCP,None [Primary Care Provider] - Forms: ED Department Discharge Additional Instructions: You may use tylenol for pain at home. Warm salt water gargles may help. Return to ED for any increased or new concerning symptoms including SOB, throat swelling, CP, inability to swallow. Follow up with PMD if symptoms persist. Start an OTC allergy pill and drink plenty of fluids. Sepsis Event Note (ED) - Evaluation Sepsis Screening Result: No Definite Risk - Focused Exam Vital Signs: Vital Signs Temp Pulse Resp BP Pulse Ox 04/03/20 14:59 97.6 F 83 16 143/80 H 98 - My Orders Last 24 Hours: My Active Orders 04/03/20 14:47 STREP SCRN A RAPID W CULT CONF [RM] Stat 04/03/20 14:55 CULTURE STREP A CONFIRMATION [RM] Stat 04/03/20 15:05 Soft Tissue Neck wo Cont [CT] Stat - Assessment/Plan Last 24 Hours: My Active Orders 04/03/20 14:47 STREP SCRN A RAPID W CULT CONF [RM] Stat 04/03/20 14:55 CULTURE STREP A CONFIRMATION [RM] Stat 04/03/20 15:05 Soft Tissue Neck wo Cont [CT] Stat
--- NOTE | 2020-04-04 09:12 | CT ---
DATE OF SERVICE: 04/03/20 CLINICAL DATA: rule out abscess UNENHANCED NECK CT: Multislice acquisition through the neck without IV contrast was performed. No priors. The visualized paranasal sinuses are clear. The parotid glands are symmetric and appear normal. The submandibular glands are symmetric and appear normal. The thyroid gland is symmetric and appears normal. No pathologically enlarged lymph nodes. The vascular structures are unremarkable. The pharynx, larynx, and airway appear unremarkable. The visualized lung apices are clear. There is degenerative disc disease at multiple levels in the cervical spine. [id number] MTDD
== END 2020-04-03 16:20 | disposition home or self-care (01) ==
LOC: LB.ED 14:25
DX: J02.9 Acute pharyngitis, unspecified (principal); E66.9 Obesity, unspecified; E11.9 Type 2 diabetes mellitus without complications; J45.909 Unspecified asthma, uncomplicated; K21.9 Gastro-esophageal reflux disease without esophagitis; Z20.828 Contact with and (suspected) exposure to other viral communicable diseases; Z88.8 Allergy status to other drugs, medicaments and biological substances; Z88.6 Allergy status to analgesic agent; Z79.4 Long term (current) use of insulin; Z79.899 Other long term (current) drug therapy
CPT/HCPCS: 70490; 87081; 87430; 99282; 99284-25; U0002

== ENCOUNTER 2020-08-08 08:37 | Emergency (ER) | payer BC ==
[2020-08-08 09:57] VITALS: BP 144/85; PULSE 88
--- NOTE | 2020-08-08 10:14 | EDM.PDOC ---
ED HPI GENERAL MEDICAL PROBLEM - General Chief Complaint: Gastrointestinal Problem Stated Complaint: DIARRHEA, NAUSEA Time Seen by Provider: 08/08/20 09:05 Source of Information: Reports: Patient History Limitations: Reports: No Limitations - History of Present Illness INITIAL COMMENTS - FREE TEXT/NARRATIVE: patient presented to the ER with a c/o GI symptoms for 2 weeks. She reports loose stool that has been going on for 2 weeks and started be more uncomfortable 2 days ago. Also reports mild nausea associated with it. Stool is loose and light in color per patient's report. No fever or chills. No h/o ETOH abuse. h/o cholecystectomy several years ago. Patient had a colonoscopy 6 months ago, that per patient's reports, was good but showed some areas of enteritis. Supportive treatment. No jaundice. Patient also reports a h/o PUD. Discomfort has nothing to do with food. Patient is diabetic and takes metformin and insulin. She also reports a h/o chronic anxiety and stress and thinks that this has been exacerbating her symptoms. Onset: Gradual Duration: Week(s): (2) - Related Data Allergies Allergy/AdvReac Type Severity Reaction Status Date / Time gabapentin Allergy Elevated Verified 10/25/17 06:23 Blood Glucose ibuprofen AdvReac Abdominal Verified 11/24/16 00:03 Pain prednisone AdvReac Abdominal Verified 11/24/16 00:03 Cramps Home Meds: Home Meds Insulin Aspart [Novolog] See Protocol SQ TIDMEALS 12/27/15 [History] metFORMIN [Glucophage] 1,000 mg PO BIDMEALS 12/27/15 [History] Omeprazole 20 mg PO DAILY 04/22/17 [History] Insulin Detemir [Levemir] 65 units SQ BEDTIME 10/25/17 [History] Ciprofloxacin HCl [Cipro] 500 mg PO BID 3 Days #6 tablet 08/08/20 [Rx] metroNIDAZOLE [Flagyl] 500 mg PO Q8H #15 tab 08/08/20 [Rx] Past Medical History HEENT History: Reports: Cataract, Impaired Vision, Sinusitis, Other (See Below) Other HEENT History: eyeglasses for reading Cardiovascular History: Reports: Arrhythmia, SOB on Exertion, Other (See Below) Other Cardiovascular History: SVT Respiratory History: Reports: Asthma, Sleep Apnea Gastrointestinal History: Reports: Chronic Constipation, Chronic Diarrhea, GERD, Pancreatitis, [employer]CH[employer]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 History: Reports: Musculoskeletal History: Reports: Arthritis, Back Pain, Chronic, Other (See Below) Other Musculoskeletal History: Tendonitis of right shoulder Psychiatric History: Reports: Anxiety, Psych Hospitalization(s) Endocrine/Metabolic History: Reports: Diabetes, Type II, Obesity/BMI 30+ Hematologic History: Reports: Blood Transfusion(s) - Infectious Disease History Infectious Disease History: Reports: Chicken Pox, Measles, Mumps, Rubella, Shingles - Past Surgical History HEENT Surgical History: Reports: Cataract Surgery Other HEENT Surgeries/Procedures: cataract surgery right eye 10/2012; cataract surgery left eye 02/2015 Cardiovascular Surgical History: Reports: Other (See Below) Other Cardiovascular Surgeries/Procedures: ablation 08/2015 Respiratory Surgical History: Reports: None GI Surgical History: Reports: Appendectomy, Cholecystectomy, Colonoscopy, EGD Female Surgical History: Reports: Tubal Ligation Endocrine Surgical History: Reports: None Musculoskeletal Surgical History: Reports: Carpal Tunnel Dermatological Surgical History: Reports: None Social & Family History - Family History Family Medical History: No Pertinent Family History Cardiac: Reports: Heart Failure, [place] Neurological: Reports: CVA Endocrine/Metabolic: Reports: Diabetes, type II - Caffeine Use Caffeine Use: Reports: None ED ROS GENERAL - Review of Systems Review Of Systems: See Below Constitutional: Reports: Fatigue. Denies: Fever, Chills HEENT: Reports: No Symptoms Respiratory: Reports: No Symptoms Cardiovascular: Reports: No Symptoms GI/Abdominal: Reports: Abdominal Pain, Diarrhea. Denies: Anorexia, Black Stool Musculoskeletal: Reports: No Symptoms Skin: Reports: No Symptoms Neurological: Reports: No Symptoms Psychiatric: Reports: Depression ED EXAM, GI/ABD - Physical Exam Exam: See Below Exam Limited By: No Limitations General Appearance: Alert, WD/WN, No Apparent Distress Eyes: Bilateral: EOMI Throat/Mouth: Normal Inspection Head: Atraumatic Respiratory/Chest: No Respiratory Distress, Lungs Clear Cardiovascular: Normal Peripheral Pulses Back Exam: Normal Inspection Extremities: Normal Inspection Neurological: Alert, Oriented, No Motor/Sensory Deficits Psychiatric: Normal Affect Course - Vital Signs Last Recorded V/S: Last Vital Signs Temp 36.4 C 08/08/20 09:35 Pulse 88 08/08/20 09:35 Resp 16 08/08/20 09:35 BP 144/85 H 08/08/20 09:35 Pulse Ox 98 08/08/20 09:35 - Orders/Labs/Meds Orders: Active Orders 24 hr Category Date Time Status OVA + PARASITE EXAM Urgent Lab 08/08/20 10:12 Ordered STOOL CULTURE Urgent Lab 08/08/20 10:12 Ordered Labs: Laboratory Tests 08/08/20 08/08/20 08/08/20 Range/Units 08:46 09:42 10:12 WBC 9.2 (4.0-11.0) K/uL RBC 4.90 (3.80-5.80) M/uL Hgb 14.1 (11.5-16.5) g/dL Hct 41.9 (37.0-47.0) % MCV 86 (76-96) fL MCH 28.8 (27.0-32.0) pg MCHC 33.7 (31.0-35.0) g/dL RDW 13.9 (11.0-16.0) % Plt Count 247 (150-500) K/uL MPV 10.8 H (6.0-10.0) fL Sodium (136-145) mmol/L Potassium (3.5-5.1) mmol/L Chloride (98-107) mmol/L Carbon Dioxide (21.0-32.0) mmol/L Anion Gap (5.0-15.0) mmol/L BUN (8-26) mg/dL Creatinine (0.55-1.02) mg/dL Est Cr Clr Drug Dosing Estimated GFR (MDRD) (>60) MLS/MIN BUN/Creatinine Ratio (6-25) Glucose (74-100) mg/dL POC Glucose 185 H (74-110) mg/dL Calcium (8.5-10.1) mg/dL Total Bilirubin (0.0-1.0) mg/dL Direct Bilirubin (0.0-0.3) mg/dL Indirect Bilirubin (<= 0.7) mg/dL AST (15-37) U/L ALT (12-78) U/L Alkaline Phosphatase (46-116) U/L Total Protein (6.4-8.2) g/dL Albumin (3.4-5.0) g/dL Globulin (2.2-4.2) g/dL Albumin/Globulin Ratio (0.8-2.0) Lipase (73-393) U/L SARS CoV-2 RNA Rapid DOMINICK Negative 08/08/20 08/08/20 Range/Units 10:12 10:20 WBC (4.0-11.0) K/uL RBC (3.80-5.80) M/uL Hgb (11.5-16.5) g/dL Hct (37.0-47.0) % MCV (76-96) fL MCH (27.0-32.0) pg MCHC (31.0-35.0) g/dL RDW (11.0-16.0) % Plt Count (150-500) K/uL MPV (6.0-10.0) fL Sodium 142 (136-145) mmol/L Potassium 3.9 (3.5-5.1) mmol/L Chloride 103 (98-107) mmol/L Carbon Dioxide 29.6 (21.0-32.0) mmol/L Anion Gap 13.3 (5.0-15.0) mmol/L BUN 10 (8-26) mg/dL Creatinine 0.88 (0.55-1.02) mg/dL Est Cr Clr Drug Dosing TNP Estimated GFR (MDRD) > 60 (>60) MLS/MIN BUN/Creatinine Ratio 11.4 (6-25) Glucose 204 H D (74-100) mg/dL POC Glucose (74-110) mg/dL Calcium 8.9 (8.5-10.1) mg/dL Total Bilirubin 0.5 (0.0-1.0) mg/dL Direct Bilirubin 0.2 (0.0-0.3) mg/dL Indirect Bilirubin 0.3 (<= 0.7) mg/dL AST 30 (15-37) U/L ALT 44 (12-78) U/L Alkaline Phosphatase 85 (46-116) U/L Total Protein 7.1 (6.4-8.2) g/dL Albumin 3.5 (3.4-5.0) g/dL Globulin 3.6 (2.2-4.2) g/dL Albumin/Globulin Ratio 1.0 (0.8-2.0) Lipase 27 L D (73-393) U/L SARS CoV-2 RNA Rapid DOMINICK Meds: Medications Discontinued Medications Generic Name Dose Route Start Last Admin Trade Name Freq PRN Reason Stop Dose Admin Ondansetron HCl Confirm 04/23/21 10:20 08/08/20 10:20 Ondansetron 4 Mg Tab.Dis Administered 08/08/20 10:21 4 mg Dose Administration 4 mg .ROUTE .STK-MED ONE Ondansetron HCl 4 mg 08/08/20 10:19 Ondansetron 4 Mg Tab.Dis PO 08/08/20 10:20 ONETIME ONE - Re-Assessments/Exams Free Text/Narrative Re-Assessment/Exam: vitals WNL COVID test negative labs were ordered - no leukocytosis, normal LFTs, and lipase. No electrolytes abnormalities. Unable to provide a stool sample for O&P testing given the strong indication for enteritis, will try a 5 days course of flagyl/Cipro. Departure - Departure Time of Disposition: 11:13 Disposition: Home, Self-Care 01 Condition: Good Clinical Impression: Gastroenteritis, Peptic ulcer, Diarrhea - Discharge Information *PRESCRIPTION DRUG MONITORING PROGRAM REVIEWED*: Not Applicable *COPY OF PRESCRIPTION DRUG MONITORING REPORT IN PATIENT DINAH: Not Applicable Prescriptions: Ciprofloxacin HCl [Cipro] 500 mg PO BID 3 Days #6 tablet metroNIDAZOLE [Flagyl] 500 mg PO Q8H #15 tab Referrals: PCP,None [Primary Care Provider] - Forms: ED Department Discharge Additional Instructions: - start taking new medications as prescribed - Increase fluids intake - recommend to resume your anti-depression medications - follow up with your PCP in 1-2 weeks as needed - return to the ER if symptoms got worse or any concerns - bring a stool sample to the lab for microscopic examination if you are able to Sepsis Event Note (ED) - Evaluation Sepsis Screening Result: No Definite Risk - Focused Exam Vital Signs: Vital Signs Temp Pulse Resp BP Pulse Ox 08/08/20 09:35 36.4 C 88 16 144/85 H 98 - Problem List & Annotations (1) Abdominal pain SNOMED Code(s): 48640871 Code(s): R10.9 - UNSPECIFIED ABDOMINAL PAIN Status: Acute Priority: Medium Current Visit: Yes Qualifiers: Abdominal location: generalized Qualified Code(s): R10.84 - Generalized abdominal pain (2) Diarrhea SNOMED Code(s): 87715447 Code(s): R19.7 - DIARRHEA, UNSPECIFIED Status: Acute Priority: Medium Current Visit: Yes (3) Gastroenteritis SNOMED Code(s): 75761131 Code(s): K52.9 - NONINFECTIVE GASTROENTERITIS AND COLITIS, UNSPECIFIED Status: Acute Priority: Low Current Visit: Yes - Problem List Review Problem List Initiated/Reviewed/Updated: Yes - My Orders Last 24 Hours: My Active Orders 08/08/20 10:12 OVA + PARASITE EXAM Urgent STOOL CULTURE Urgent - Assessment/Plan Last 24 Hours: My Active Orders 08/08/20 10:12 OVA + PARASITE EXAM Urgent STOOL CULTURE Urgent Plan: - start taking new medications as prescribed ( Cipro and Flagyl were prescribed for enteritis ) - Increase fluids intake - recommend to resume your anti-depression medications - follow up with your PCP in 1-2 weeks as needed - return to the ER if symptoms got worse or any concerns - bring a stool sample to the lab for microscopic examination if you are able to
[2020-08-08] MEDS ORDERED: Ondansetron 4 MG Tab.DIS PO ONE (10:19)
[2020-08-08] MEDS: Ondansetron 4 MG Tab.DIS ONE (10:20)
== END 2020-08-08 11:25 | disposition home or self-care (01) ==
LOC: LB.ED 08:37
DX: K52.9 Noninfective gastroenteritis and colitis, unspecified (principal); K27.9 Peptic ulcer, site unspecified, unspecified as acute or chronic, without hemorrhage or perforation; E11.9 Type 2 diabetes mellitus without complications; J45.909 Unspecified asthma, uncomplicated; E66.9 Obesity, unspecified; K21.9 Gastro-esophageal reflux disease without esophagitis; Z20.822 Contact with and (suspected) exposure to COVID-19; Z88.8 Allergy status to other drugs, medicaments and biological substances; Z88.6 Allergy status to analgesic agent; Z79.4 Long term (current) use of insulin; Z79.899 Other long term (current) drug therapy
CPT/HCPCS: 36415; 80048; 80076; 82947; 83690; 85027; 99283; 99284; A9270-GY; U0002

== ENCOUNTER 2021-04-21 20:43 | Observation (INO) | payer MEDICARE ==
[2021-04-21] MEDS ORDERED: Sodium Chloride 0.9% 10 ML Syringe FLUSH PRN (21:01)
--- NOTE | 2021-04-21 21:07 | EDM.PDOC ---
ED HPI GENERAL MEDICAL PROBLEM - General Chief Complaint: General Stated Complaint: hypoglycemia Time Seen by Provider: 04/21/21 20:50 Source of Information: Reports: Patient, EMS Notes Reviewed, RN Notes Reviewed History Limitations: Reports: No Limitations - History of Present Illness INITIAL COMMENTS - FREE TEXT/NARRATIVE: This patient presents to the emergency room via EMS for evaluation of hypoglycemia. She phoned the hospital earlier this evening stating that she had taken too much of her NovoLog insulin and was asking for advice. She was instructed to come into the ER for evaluation. On arrival to the ER her blood sugar was 74 and she had been given glucagon by EMS on route. Prior to that her blood sugar was 59 at home. She states that she took 44 units of NovoLog at approximately 5 PM tonight. She normally takes 44 units of Lantus at bedtime but mixed these medications up this evening. 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 She started cardiac rehab in this facility on April 20 and stated it went well. She is scheduled for a follow-up cardiology appointment at [facility] tomorrow. She states she feels a little nauseated and a little unsteady at this time. She denies recent illnesses including cough, fever, chest pain, vomiting, or diarrhea. - Related Data Allergies Allergy/AdvReac Type Severity Reaction Status Date / Time gabapentin Allergy Elevated Verified 01/24/21 10:55 Blood Glucose ibuprofen AdvReac Abdominal Verified 01/24/21 10:55 Pain prednisone AdvReac Abdominal Verified 01/24/21 10:55 Cramps Home Meds: Home Meds metFORMIN [Glucophage] 1,000 mg PO BIDMEALS 12/27/15 [History] Omeprazole 20 mg PO DAILY 04/22/17 [History] Insulin Glarg,Human.Rec.Analog [Lantus Solostar] 44 units SQ ACBREAKFAST 01/26/21 [History] Vitamin E 1,000 units PO DAILY 01/26/21 [History] Past Medical History HEENT History: Reports: Cataract, Impaired Vision, Sinusitis, Other (See Below) Other HEENT History: eyeglasses for reading Cardiovascular History: Reports: Arrhythmia, SOB on Exertion, Other (See Below) Other Cardiovascular History: SVT Respiratory History: Reports: Asthma, Sleep Apnea Gastrointestinal History: Reports: Chronic Constipation, Chronic Diarrhea, GERD, Pancreatitis, [employer]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: Reports: Musculoskeletal History: Reports: Arthritis, Back Pain, Chronic, Other (See Below) Other Musculoskeletal History: Tendonitis of right shoulder Psychiatric History: Reports: Anxiety, Psych Hospitalization(s) Endocrine/Metabolic History: Reports: Diabetes, Type II, Obesity/BMI 30+ Hematologic History: Reports: Blood Transfusion(s) - Infectious Disease History Infectious Disease History: Reports: Chicken Pox, Measles, Mumps, Rubella, Shingles - Past Surgical History HEENT Surgical History: Reports: Cataract Surgery Other HEENT Surgeries/Procedures: cataract surgery right eye 10/2012; cataract surgery left eye 02/2015 Cardiovascular Surgical History: Reports: Other (See Below) Other Cardiovascular Surgeries/Procedures: ablation 08/2015 Respiratory Surgical History: Reports: None GI Surgical History: Reports: Appendectomy, Cholecystectomy, Colonoscopy, EGD Female Surgical History: Reports: Tubal Ligation Endocrine Surgical History: Reports: None Musculoskeletal Surgical History: Reports: Carpal Tunnel Dermatological Surgical History: Reports: None Social & Family History - Family History Family Medical History: No Pertinent Family History Cardiac: Reports: Heart Failure, [place] Neurological: Reports: CVA Endocrine/Metabolic: Reports: Diabetes, type II - Caffeine Use Caffeine Use: Reports: None ED ROS GENERAL - Review of Systems Review Of Systems: Comprehensive ROS is negative, except as noted in HPI. ED EXAM, GENERAL - Physical Exam Exam: See Below Exam Limited By: No Limitations General Appearance: Alert, No Apparent Distress, Anxious, Mild Distress Eye Exam: Bilateral Eye: EOMI, Normal Inspection, PERRL Ears: Normal External Exam Nose: Normal Inspection Head: Atraumatic, Normocephalic Neck: Normal Inspection, Full Range of Motion Respiratory/Chest: No Respiratory Distress, Lungs Clear, Normal Breath Sounds, No Accessory Muscle Use Cardiovascular: Normal Peripheral Pulses, Regular Rate, Rhythm Neurological: Alert, Oriented Psychiatric: Normal Affect Skin Exam: Warm, Dry, Intact Course - Orders/Labs/Meds Orders: Active Orders 24 hr Category Date Time Status Admission Status [Patient Status] [ADT] Routine ADT 04/21/21 21:08 Ordered CORONAVIRUS COVID-19 DOMINICK [MOLEC] Stat Lab 04/21/21 21:23 Received Dextrose 5%-1/2 Normal Saline @ 100 MLS/HR(1000ml) Med 04/21/21 21:15 Ordered Dextrose 5%-0.45% NaCl [Dextrose 5%-1/2 NS] 1,000 ml IV ASDIRECTED Sodium Chloride 0.9% [Saline Flush] Med 04/21/21 21:01 Ordered 10 ml FLUSH ASDIRECTED PRN Saline Lock Insert [OM.PC] Routine Oth 04/21/21 21:01 Ordered Medication Orders Dextrose/Sodium Chloride (Dextrose 5%-1/2 Ns) 1,000 mls @ 100 mls/hr IV ASDIRECTED AJ Last Admin: 04/21/21 21:15 Dose: 100 mls/hr Documented by: Sodium Chloride (Sodium Chloride 0.9% 10 Ml Syringe) 10 ml FLUSH ASDIRECTED PRN PRN Reason: Keep Vein Open Labs: Laboratory Tests 04/21/21 04/21/21 04/21/21 Range/Units 20:55 21:01 21:01 WBC 13.1 H D (4.0-11.0) K/uL RBC 4.44 (3.80-5.80) M/uL Hgb 12.7 (11.5-16.5) g/dL Hct 39.0 (37.0-47.0) % MCV 88 (76-96) fL MCH 28.6 (27.0-32.0) pg MCHC 32.6 (31.0-35.0) g/dL RDW 14.0 (11.0-16.0) % Plt Count 368 D (150-500) K/uL MPV 10.3 H (6.0-10.0) fL Neut % (Auto) 50.7 (45.0-70.0) % Lymph % (Auto) 27.0 (20.0-40.0) % [place] % (Auto) 8.9 (3.0-10.0) % Eos % (Auto) 12.9 H (1.0-5.0) % Baso % (Auto) 0.5 (0.0-0.5) % Neut # (Auto) 6.64 (2.00-7.50) K/uL Lymph # (Auto) 3.54 (1.50-4.00) K/uL [place] # (Auto) 1.16 H (0.20-0.80) K/uL Eos # (Auto) 1.69 H (0.04-0.40) K/uL Baso # (Auto) 0.06 (0.02-0.10) K/uL Sodium 147 H (136-145) mmol/L Potassium 3.8 (3.5-5.1) mmol/L Chloride 107 (98-107) mmol/L Carbon Dioxide 28.7 (21.0-32.0) mmol/L Anion Gap 15.1 H (5.0-15.0) mmol/L BUN 24 D (8-26) mg/dL Creatinine 0.91 D (0.55-1.02) mg/dL Est Cr Clr Drug Dosing TNP Estimated GFR (MDRD) > 60 (>60) MLS/MIN BUN/Creatinine Ratio 26.4 H (6-25) Glucose 59 L D (74-100) mg/dL POC Glucose 74 (74-110) mg/dL Calcium 9.3 (8.5-10.1) mg/dL Meds: Medications Generic Name Dose Route Start Last Admin Trade Name Freq PRN Reason Stop Dose Admin Dextrose/Sodium Chloride 1,000 mls @ 100 mls/hr 04/21/21 21:15 04/21/21 21:15 Dextrose 5%-1/2 Ns IV 100 mls/hr ASDIRECTED AJ Administration Sodium Chloride 10 ml 04/21/21 21:01 Sodium Chloride 0.9% 10 Ml Syringe FLUSH ASDIRECTED PRN Keep Vein Open - Re-Assessments/Exams Free Text/Narrative Re-Assessment/Exam: 04/21/21 22:12 This patient presents to the emergency room after inadvertently taking too much NovoLog insulin. Given its half-life and the timing of its peak I opted to admit her to the hospital for frequent glucose checks throughout the night. She will be given IV fluids and monitored closely. Anticipated discharge in the morning should she feel okay. The patient will be admitted observation status to the inpatient unit. She was stable at the time she was transferred to the inpatient unit. Departure - Departure Time of Disposition: 22:20 Disposition: Refer to Observation Condition: Good Clinical Impression: Hypoglycemia due to insulin - Discharge Information Referrals: PCP,None [Primary Care Provider] - Forms: ED Department Discharge - My Orders Last 24 Hours: My Active Orders 04/21/21 21:01 Sodium Chloride 0.9% [Saline Flush] 10 ml FLUSH ASDIRECTED PRN Saline Lock Insert [OM.PC] Routine 04/21/21 21:08 Admission Status [Patient Status] [ADT] Routine 04/21/21 21:15 Dextrose 5%-1/2 Normal Saline @ 100 MLS/HR(1000ml) Dextrose 5%-0.45% NaCl [Dextrose 5%-1/2 NS] 1,000 ml IV ASDIRECTED 04/21/21 21:23 CORONAVIRUS COVID-19 DOMINICK [MOLEC] Stat - Assessment/Plan Last 24 Hours: My Active Orders 04/21/21 21:01 Sodium Chloride 0.9% [Saline Flush] 10 ml FLUSH ASDIRECTED PRN Saline Lock Insert [OM.PC] Routine 04/21/21 21:08 Admission Status [Patient Status] [ADT] Routine 04/21/21 21:15 Dextrose 5%-1/2 Normal Saline @ 100 MLS/HR(1000ml) Dextrose 5%-0.45% NaCl [Dextrose 5%-1/2 NS] 1,000 ml IV ASDIRECTED 04/21/21 21:23 CORONAVIRUS COVID-19 DOMINICK [MOLEC] Stat
[2021-04-21] MEDS: Dextrose 5%-0.45% NaCl 1,000 ML IV SCH (21:15)
[2021-04-21] MEDS ORDERED: Acetaminophen 325 MG Tab PO PRN (22:55)
[2021-04-21] MEDS ORDERED: Ondansetron 4 MG Tab.DIS PO PRN (22:56)
[2021-04-21] MEDS ORDERED: Dextrose 5%-0.45% NaCl 1,000 ML IV SCH (23:15)
[2021-04-22] MEDS ORDERED: Pantoprazole 40 MG Tab.CR PO SCH (07:00)
[2021-04-22 07:51] VITALS: BP 130/90; PULSE 75
--- NOTE | 2021-04-22 08:36 | PCM.HP.2 ---
H&P History of Present Illness - General Date of Service: 04/21/21 Admit Problem/Dx: hypoglycemia Source of Information: Patient, EMS Notes Reviewed, RN Notes Reviewed History Limitations: Reports: No Limitations - History of Present Illness Initial Comments - Free Text/Narative: This patient was admitted from the emergency department for hypoglycemia. She confused her Lantus and NovoLog insulin doses this evening and took an excessive amount of NovoLog. She is admitted for [id number] glucose monitoring through the night with IV fluid support. - Related Data Allergies/Adverse Reactions: Allergies Allergy/AdvReac Type Severity Reaction Status Date / Time gabapentin Allergy Elevated Verified 01/24/21 10:55 Blood Glucose hydrocodone Allergy Stomach Verified 04/22/21 03:00 Upset ibuprofen AdvReac Abdominal Verified 04/22/21 03:00 Pain Home Medications: Home Meds metFORMIN [Glucophage] 1,000 mg PO BIDMEALS 12/27/15 [History] Omeprazole 20 mg PO DAILY 04/22/17 [History] Insulin Glarg,Human.Rec.Analog [Lantus Solostar] 44 units SQ ACBREAKFAST 01/26/21 [History] Vitamin E 1,000 units PO DAILY 01/26/21 [History] Ascorbic Acid [Vitamin C] 1,000 mg PO DAILY 04/22/21 [History] Cranberry 400 mg PO DAILY 04/22/21 [History] Metoprolol Succinate 25 mg PO BID 04/22/21 [History] Rosuvastatin [Crestor] 20 mg PO BEDTIME 04/22/21 [History] Past Medical History HEENT History: Reports: Cataract, Impaired Vision, Sinusitis, Other (See Below) Other HEENT History: eyeglasses for reading Cardiovascular History: Reports: Arrhythmia, Bypass, SOB on Exertion, Other (See Below) Other Cardiovascular History: history of SVT. 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: Musculoskeletal History: Reports: Arthritis, Back Pain, Chronic, Other (See Below) Other Musculoskeletal History: Tendonitis of right shoulder Psychiatric History: Reports: Anxiety, Psych Hospitalization(s) Endocrine/Metabolic History: Reports: Diabetes, Type II, Obesity/BMI 30+ Hematologic History: Reports: Blood Transfusion(s) - Infectious Disease History Infectious Disease History: Reports: Chicken Pox, Measles, Mumps, Rubella, Shingles - Past Surgical History HEENT Surgical History: Reports: Cataract Surgery Other HEENT Surgeries/Procedures: cataract surgery right eye 10/2012; cataract surgery left eye 02/2015 Cardiovascular Surgical History: Reports: Other (See Below) Other Cardiovascular Surgeries/Procedures: ablation 08/2015 Respiratory Surgical History: Reports: None GI Surgical History: Reports: Appendectomy, Cholecystectomy, Colonoscopy, EGD Female Surgical History: Reports: Tubal Ligation Endocrine Surgical History: Reports: None Musculoskeletal Surgical History: Reports: Carpal Tunnel Dermatological Surgical History: Reports: None Social & Family History - Family History Family Medical History: No Pertinent Family History Cardiac: Reports: Heart Failure, [place] Neurological: Reports: CVA Endocrine/Metabolic: Reports: Diabetes, type II - Tobacco Use Tobacco Use Status *Q: Never Tobacco User - Caffeine Use Caffeine Use: Reports: None H&P Review of Systems - Review of Systems: Review Of Systems: Comprehensive ROS is negative, except as noted in HPI. Exam - Exam Exam: Not Obtained Reason Not Obtained: See emergency room record. - Vital Signs Vital Signs: Last Vital Signs Temp 37.1 C 04/22/21 07:51 Pulse 75 04/22/21 07:51 Resp 18 04/22/21 07:51 BP 130/90 04/22/21 07:51 Pulse Ox 98 04/22/21 07:51 Weight: 77.564 kg - Patient Data Lab Results Last 24 hrs: Laboratory Results - last 24 hr 04/21/21 04/21/21 04/21/21 Range/Units 20:55 21:01 21:01 WBC 13.1 H D (4.0-11.0) K/uL RBC 4.44 (3.80-5.80) M/uL Hgb 12.7 (11.5-16.5) g/dL Hct 39.0 (37.0-47.0) % MCV 88 (76-96) fL MCH 28.6 (27.0-32.0) pg MCHC 32.6 (31.0-35.0) g/dL RDW 14.0 (11.0-16.0) % Plt Count 368 D (150-500) K/uL MPV 10.3 H (6.0-10.0) fL Neut % (Auto) 50.7 (45.0-70.0) % Lymph % (Auto) 27.0 (20.0-40.0) % Leon % (Auto) 8.9 (3.0-10.0) % Eos % (Auto) 12.9 H (1.0-5.0) % Baso % (Auto) 0.5 (0.0-0.5) % Neut # (Auto) 6.64 (2.00-7.50) K/uL Lymph # (Auto) 3.54 (1.50-4.00) K/uL Leon # (Auto) 1.16 H (0.20-0.80) K/uL Eos # (Auto) 1.69 H (0.04-0.40) K/uL Baso # (Auto) 0.06 (0.02-0.10) K/uL Sodium 147 H (136-145) mmol/L Potassium 3.8 (3.5-5.1) mmol/L Chloride 107 (98-107) mmol/L Carbon Dioxide 28.7 (21.0-32.0) mmol/L Anion Gap 15.1 H (5.0-15.0) mmol/L BUN 24 D (8-26) mg/dL Creatinine 0.91 D (0.55-1.02) mg/dL Est Cr Clr Drug Dosing TNP Estimated GFR (MDRD) > 60 (>60) MLS/MIN BUN/Creatinine Ratio 26.4 H (6-25) Glucose 59 L D (74-100) mg/dL POC Glucose 74 (74-110) mg/dL Calcium 9.3 (8.5-10.1) mg/dL SARS-CoV-2 RNA (DOMINICK) (NEGATIVE) 04/21/21 04/21/21 04/22/21 Range/Units 21:23 22:13 00:29 WBC (4.0-11.0) K/uL RBC (3.80-5.80) M/uL Hgb (11.5-16.5) g/dL Hct (37.0-47.0) % MCV (76-96) fL MCH (27.0-32.0) pg MCHC (31.0-35.0) g/dL RDW (11.0-16.0) % Plt Count (150-500) K/uL MPV (6.0-10.0) fL Neut % (Auto) (45.0-70.0) % Lymph % (Auto) (20.0-40.0) % Leon % (Auto) (3.0-10.0) % Eos % (Auto) (1.0-5.0) % Baso % (Auto) (0.0-0.5) % Neut # (Auto) (2.00-7.50) K/uL Lymph # (Auto) (1.50-4.00) K/uL Leon # (Auto) (0.20-0.80) K/uL Eos # (Auto) (0.04-0.40) K/uL Baso # (Auto) (0.02-0.10) K/uL Sodium (136-145) mmol/L Potassium (3.5-5.1) mmol/L Chloride (98-107) mmol/L Carbon Dioxide (21.0-32.0) mmol/L Anion Gap (5.0-15.0) mmol/L BUN (8-26) mg/dL Creatinine (0.55-1.02) mg/dL Est Cr Clr Drug Dosing Estimated GFR (MDRD) (>60) MLS/MIN BUN/Creatinine Ratio (6-25) Glucose (74-100) mg/dL POC Glucose 85 100 (74-110) mg/dL Calcium (8.5-10.1) mg/dL SARS-CoV-2 RNA (DOMINICK) Negative (NEGATIVE) 04/22/21 04/22/21 04/22/21 Range/Units 01:38 02:32 04:01 WBC (4.0-11.0) K/uL RBC (3.80-5.80) M/uL Hgb (11.5-16.5) g/dL Hct (37.0-47.0) % MCV (76-96) fL MCH (27.0-32.0) pg MCHC (31.0-35.0) g/dL RDW (11.0-16.0) % Plt Count (150-500) K/uL MPV (6.0-10.0) fL Neut % (Auto) (45.0-70.0) % Lymph % (Auto) (20.0-40.0) % Leon % (Auto) (3.0-10.0) % Eos % (Auto) (1.0-5.0) % Baso % (Auto) (0.0-0.5) % Neut # (Auto) (2.00-7.50) K/uL Lymph # (Auto) (1.50-4.00) K/uL Leon # (Auto) (0.20-0.80) K/uL Eos # (Auto) (0.04-0.40) K/uL Baso # (Auto) (0.02-0.10) K/uL Sodium (136-145) mmol/L Potassium (3.5-5.1) mmol/L Chloride (98-107) mmol/L Carbon Dioxide (21.0-32.0) mmol/L Anion Gap (5.0-15.0) mmol/L BUN (8-26) mg/dL Creatinine (0.55-1.02) mg/dL Est Cr Clr Drug Dosing Estimated GFR (MDRD) (>60) MLS/MIN BUN/Creatinine Ratio (6-25) Glucose (74-100) mg/dL POC Glucose 155 H 168 H 210 H (74-110) mg/dL Calcium (8.5-10.1) mg/dL SARS-CoV-2 RNA (DOMINICK) (NEGATIVE) 04/22/21 Range/Units 07:47 WBC (4.0-11.0) K/uL RBC (3.80-5.80) M/uL Hgb (11.5-16.5) g/dL Hct (37.0-47.0) % MCV (76-96) fL MCH (27.0-32.0) pg MCHC (31.0-35.0) g/dL RDW (11.0-16.0) % Plt Count (150-500) K/uL MPV (6.0-10.0) fL Neut % (Auto) (45.0-70.0) % Lymph % (Auto) (20.0-40.0) % Leon % (Auto) (3.0-10.0) % Eos % (Auto) (1.0-5.0) % Baso % (Auto) (0.0-0.5) % Neut # (Auto) (2.00-7.50) K/uL Lymph # (Auto) (1.50-4.00) K/uL Leon # (Auto) (0.20-0.80) K/uL Eos # (Auto) (0.04-0.40) K/uL Baso # (Auto) (0.02-0.10) K/uL Sodium (136-145) mmol/L Potassium (3.5-5.1) mmol/L Chloride (98-107) mmol/L Carbon Dioxide (21.0-32.0) mmol/L Anion Gap (5.0-15.0) mmol/L BUN (8-26) mg/dL Creatinine (0.55-1.02) mg/dL Est Cr Clr Drug Dosing Estimated GFR (MDRD) (>60) MLS/MIN BUN/Creatinine Ratio (6-25) Glucose (74-100) mg/dL POC Glucose 153 H (74-110) mg/dL Calcium (8.5-10.1) mg/dL SARS-CoV-2 RNA (DOMINICK) (NEGATIVE) Result Diagrams: 04/21/21 21:01 04/21/21 21:01 Sepsis Event Note - Evaluation Sepsis Screening Result: No Definite Risk - Focused Exam Vital Signs: Vital Signs Temp Pulse Resp BP Pulse Ox 04/22/21 07:51 37.1 C 75 18 130/90 98 04/22/21 02:50 36.8 C 79 16 137/81 97 04/21/21 21:00 37.1 C 81 16 99 Problem List Initiated/Reviewed/Updated: Yes Orders Last 24hrs: Active Orders 24 hr Category Date Time Status Admission Status [Patient Status] [ADT] Routine ADT 04/21/21 21:08 Active Patient Status [ADT] Routine ADT 04/21/21 22:50 Active Oxygen Therapy [RC] PRN Care 04/21/21 22:50 Active POC Glucose [Blood Glucose Check, Bedside] [RC] 08,12, Care 04/21/21 23:02 Active 17,20 Ready for Discharge [RC] PER UNIT ROUTINE Care 04/22/21 08:35 Ordered Up ad Nola [RC] ASDIRECTED Care 04/21/21 22:50 Active VTE/DVT Education [RC] Per Unit Routine Care 04/21/21 22:50 Active Vital Signs [RC] Q4H Care 04/21/21 22:50 Active Acetaminophen [TylenoL] Med 04/21/21 22:55 Active 650 mg PO Q4H PRN Dextrose 5%-0.45% NaCl [Dextrose 5%-1/2 NS] 1,000 ml Med 04/21/21 23:15 Active IV ASDIRECTED Ondansetron [Zofran ODT] Med 04/21/21 22:56 Active 4 mg PO Q6H PRN Sodium Chloride 0.9% [Saline Flush] Med 04/21/21 21:01 Active 10 ml FLUSH ASDIRECTED PRN Saline Lock Insert [OM.PC] Routine Oth 04/21/21 21:01 Ordered Resuscitation Status Routine Resus Stat 04/21/21 22:50 Ordered Medication Orders Acetaminophen (Acetaminophen 325 Mg Tab) 650 mg PO Q4H PRN PRN Reason: Pain Dextrose/Sodium Chloride (Dextrose 5%-1/2 Ns) 1,000 mls @ 100 mls/hr IV ASDIRECTED AJ Ondansetron HCl (Ondansetron 4 Mg Tab.Dis) 4 mg PO Q6H PRN PRN Reason: Nausea/Vomiting Sodium Chloride (Sodium Chloride 0.9% 10 Ml Syringe) 10 ml FLUSH ASDIRECTED PRN PRN Reason: Keep Vein Open Assessment/Plan Comment:: Hypoglycemia Every 2 hour glucose monitoring with D5 and a half normal saline to maintain blood sugar within normal limits. May stop every 2 hour blood sugar checks at 4 AM and go to before meals blood sugar checks. Plan is for patient discharge later this morning. Pharmacist to review medications with patient to look for potential solutions to prevent mixing of insulins in the future. - Mortality Measure Prognosis:: Good
--- NOTE | 2021-04-22 08:37 | PCM.DCSUM1 ---
Discharge Summary - Hospital Course Brief History: This patient was admitted from the emergency department for hypoglycemia due to an error in insulin dosing at home. Diagnosis: Stroke: No - Discharge Data Discharge Date: 04/22/21 Discharge Disposition: Home, Self-Care 01 Condition: Good - Referral to Home Health Primary Care Physician: PCP None - Patient Summary/Data Hospital Course: Patient admitted overnight for glucose monitoring. Glucose remained within normal limits with IV fluid support. - Discharge Plan *PRESCRIPTION DRUG MONITORING PROGRAM REVIEWED*: Not Applicable *COPY OF PRESCRIPTION DRUG MONITORING REPORT IN PATIENT DINAH: Not Applicable Home Medications: Home Meds metFORMIN [Glucophage] 1,000 mg PO BIDMEALS 12/27/15 [History] Omeprazole 20 mg PO DAILY 04/22/17 [History] Insulin Glarg,Human.Rec.Analog [Lantus Solostar] 44 units SQ ACBREAKFAST 01/26/21 [History] Vitamin E 1,000 units PO DAILY 01/26/21 [History] Ascorbic Acid [Vitamin C] 1,000 mg PO DAILY 04/22/21 [History] Cranberry 400 mg PO DAILY 04/22/21 [History] Metoprolol Succinate 25 mg PO BID 04/22/21 [History] Rosuvastatin [Crestor] 20 mg PO BEDTIME 04/22/21 [History] Forms: ED Department Discharge Referrals: PCP,None [Primary Care Provider] - - Discharge Summary/Plan Comment DC Time >30 min.: No Total # of Minutes for Discharge Time: 20 - General Info Date of Service: 04/22/21 Subjective Update: Patient did well through the night with blood sugars within normal limits. Her D5 and a half was DC'd at 4 AM when blood sugars were 100. [id number] blood sugar done this morning prior to breakfast was within normal limits for her. She may resume her normal medications. Patient had a cardiac bypass on March 31 and had her first cardiology follow- up scheduled for later this morning. This was rescheduled for her to April 28 at 8:40 AM. She had blood work and EKG requirements prior to this visit which were completed through this hospitalization. Functional Status: Reports: Tolerating Diet, Ambulating, Urinating. Denies: New Symptoms - Review of Systems General: Reports: No Symptoms HEENT: Reports: No Symptoms Pulmonary: Reports: No Symptoms Cardiovascular: Reports: No Symptoms Gastrointestinal: Reports: No Symptoms Genitourinary: Reports: No Symptoms Musculoskeletal: Reports: No Symptoms Skin: Reports: No Symptoms Neurological: Reports: No Symptoms Psychiatric: Reports: No Symptoms - Patient Data Vitals - Most Recent: Last Vital Signs Temp 37.1 C 04/22/21 07:51 Pulse 75 04/22/21 07:51 Resp 18 04/22/21 07:51 BP 130/90 04/22/21 07:51 Pulse Ox 98 04/22/21 07:51 Weight - Most Recent: 77.564 kg I&O - Last 24 hours: Intake & Output 04/21/21 04/22/21 04/22/21 22:59 06:59 14:59 Intake Total 200 Balance 200 Lab Results - Last 24 hrs: Laboratory Results - last 24 hr 04/21/21 04/21/21 04/21/21 Range/Units 20:55 21:01 21:01 WBC 13.1 H D (4.0-11.0) K/uL RBC 4.44 (3.80-5.80) M/uL Hgb 12.7 (11.5-16.5) g/dL Hct 39.0 (37.0-47.0) % MCV 88 (76-96) fL MCH 28.6 (27.0-32.0) pg MCHC 32.6 (31.0-35.0) g/dL RDW 14.0 (11.0-16.0) % Plt Count 368 D (150-500) K/uL MPV 10.3 H (6.0-10.0) fL Neut % (Auto) 50.7 (45.0-70.0) % Lymph % (Auto) 27.0 (20.0-40.0) % Ada % (Auto) 8.9 (3.0-10.0) % Eos % (Auto) 12.9 H (1.0-5.0) % Baso % (Auto) 0.5 (0.0-0.5) % Neut # (Auto) 6.64 (2.00-7.50) K/uL Lymph # (Auto) 3.54 (1.50-4.00) K/uL Ada # (Auto) 1.16 H (0.20-0.80) K/uL Eos # (Auto) 1.69 H (0.04-0.40) K/uL Baso # (Auto) 0.06 (0.02-0.10) K/uL Sodium 147 H (136-145) mmol/L Potassium 3.8 (3.5-5.1) mmol/L Chloride 107 (98-107) mmol/L Carbon Dioxide 28.7 (21.0-32.0) mmol/L Anion Gap 15.1 H (5.0-15.0) mmol/L BUN 24 D (8-26) mg/dL Creatinine 0.91 D (0.55-1.02) mg/dL Est Cr Clr Drug Dosing TNP Estimated GFR (MDRD) > 60 (>60) MLS/MIN BUN/Creatinine Ratio 26.4 H (6-25) Glucose 59 L D (74-100) mg/dL POC Glucose 74 (74-110) mg/dL Calcium 9.3 (8.5-10.1) mg/dL SARS-CoV-2 RNA (DOMINICK) (NEGATIVE) 04/21/21 04/21/21 04/22/21 Range/Units 21:23 22:13 00:29 WBC (4.0-11.0) K/uL RBC (3.80-5.80) M/uL Hgb (11.5-16.5) g/dL Hct (37.0-47.0) % MCV (76-96) fL MCH (27.0-32.0) pg MCHC (31.0-35.0) g/dL RDW (11.0-16.0) % Plt Count (150-500) K/uL MPV (6.0-10.0) fL Neut % (Auto) (45.0-70.0) % Lymph % (Auto) (20.0-40.0) % Ada % (Auto) (3.0-10.0) % Eos % (Auto) (1.0-5.0) % Baso % (Auto) (0.0-0.5) % Neut # (Auto) (2.00-7.50) K/uL Lymph # (Auto) (1.50-4.00) K/uL Ada # (Auto) (0.20-0.80) K/uL Eos # (Auto) (0.04-0.40) K/uL Baso # (Auto) (0.02-0.10) K/uL Sodium (136-145) mmol/L Potassium (3.5-5.1) mmol/L Chloride (98-107) mmol/L Carbon Dioxide (21.0-32.0) mmol/L Anion Gap (5.0-15.0) mmol/L BUN (8-26) mg/dL Creatinine (0.55-1.02) mg/dL Est Cr Clr Drug Dosing Estimated GFR (MDRD) (>60) MLS/MIN BUN/Creatinine Ratio (6-25) Glucose (74-100) mg/dL POC Glucose 85 100 (74-110) mg/dL Calcium (8.5-10.1) mg/dL SARS-CoV-2 RNA (DOMINICK) Negative (NEGATIVE) 04/22/21 04/22/21 04/22/21 Range/Units 01:38 02:32 04:01 WBC (4.0-11.0) K/uL RBC (3.80-5.80) M/uL Hgb (11.5-16.5) g/dL Hct (37.0-47.0) % MCV (76-96) fL MCH (27.0-32.0) pg MCHC (31.0-35.0) g/dL RDW (11.0-16.0) % Plt Count (150-500) K/uL MPV (6.0-10.0) fL Neut % (Auto) (45.0-70.0) % Lymph % (Auto) (20.0-40.0) % Ada % (Auto) (3.0-10.0) % Eos % (Auto) (1.0-5.0) % Baso % (Auto) (0.0-0.5) % Neut # (Auto) (2.00-7.50) K/uL Lymph # (Auto) (1.50-4.00) K/uL Ada # (Auto) (0.20-0.80) K/uL Eos # (Auto) (0.04-0.40) K/uL Baso # (Auto) (0.02-0.10) K/uL Sodium (136-145) mmol/L Potassium (3.5-5.1) mmol/L Chloride (98-107) mmol/L Carbon Dioxide (21.0-32.0) mmol/L Anion Gap (5.0-15.0) mmol/L BUN (8-26) mg/dL Creatinine (0.55-1.02) mg/dL Est Cr Clr Drug Dosing Estimated GFR (MDRD) (>60) MLS/MIN BUN/Creatinine Ratio (6-25) Glucose (74-100) mg/dL POC Glucose 155 H 168 H 210 H (74-110) mg/dL Calcium (8.5-10.1) mg/dL SARS-CoV-2 RNA (DOMINICK) (NEGATIVE) 04/22/21 Range/Units 07:47 WBC (4.0-11.0) K/uL RBC (3.80-5.80) M/uL Hgb (11.5-16.5) g/dL Hct (37.0-47.0) % MCV (76-96) fL MCH (27.0-32.0) pg MCHC (31.0-35.0) g/dL RDW (11.0-16.0) % Plt Count (150-500) K/uL MPV (6.0-10.0) fL Neut % (Auto) (45.0-70.0) % Lymph % (Auto) (20.0-40.0) % Ada % (Auto) (3.0-10.0) % Eos % (Auto) (1.0-5.0) % Baso % (Auto) (0.0-0.5) % Neut # (Auto) (2.00-7.50) K/uL Lymph # (Auto) (1.50-4.00) K/uL Ada # (Auto) (0.20-0.80) K/uL Eos # (Auto) (0.04-0.40) K/uL Baso # (Auto) (0.02-0.10) K/uL Sodium (136-145) mmol/L Potassium (3.5-5.1) mmol/L Chloride (98-107) mmol/L Carbon Dioxide (21.0-32.0) mmol/L Anion Gap (5.0-15.0) mmol/L BUN (8-26) mg/dL Creatinine (0.55-1.02) mg/dL Est Cr Clr Drug Dosing Estimated GFR (MDRD) (>60) MLS/MIN BUN/Creatinine Ratio (6-25) Glucose (74-100) mg/dL POC Glucose 153 H (74-110) mg/dL Calcium (8.5-10.1) mg/dL SARS-CoV-2 RNA (DOMINICK) (NEGATIVE) Med Orders - Current: Current Medications Acetaminophen (Acetaminophen 325 Mg Tab) 650 mg PO Q4H PRN PRN Reason: Pain Dextrose/Sodium Chloride (Dextrose 5%-1/2 Ns) 1,000 mls @ 100 mls/hr IV ASDIRECTED AJ Ondansetron HCl (Ondansetron 4 Mg Tab.Dis) 4 mg PO Q6H PRN PRN Reason: Nausea/Vomiting Sodium Chloride (Sodium Chloride 0.9% 10 Ml Syringe) 10 ml FLUSH ASDIRECTED PRN PRN Reason: Keep Vein Open Discontinued Medications Dextrose/Sodium Chloride (Dextrose 5%-1/2 Ns) 1,000 mls @ 100 mls/hr IV ASDIRECTED AJ Last Infusion: 04/22/21 04:13 Dose: 0 mls/hr Documented by: Pantoprazole Sodium (Pantoprazole 40 Mg Tab.Cr) 40 mg PO ACBREAKFAST AJ - Exam General: Reports: Alert, Oriented HEENT: Reports: Pupils Equal, Pupils Reactive, EOMI, Mucous Membr. Moist/[place] Neck: Reports: Supple Lungs: Reports: Clear to Auscultation, Normal Respiratory Effort Cardiovascular: Reports: Regular Rate, Regular Rhythm Skin: Reports: Warm, Intact Neurological: Reports: No New Focal Deficit Psy/Mental Status: Reports: Alert, Normal Affect
== END 2021-04-22 10:15 | disposition home or self-care (01) ==
LOC: LB.ED 20:43 → LB.MS 21:08 → LB.ED 22:25 → LB.MS 22:25 → UNDOADMOB 22:25
PROVIDERS: ADMIT Nurse Practitioner; ATTEND Nurse Practitioner
DX: E11.649 Type 2 diabetes mellitus with hypoglycemia without coma (principal); J45.909 Unspecified asthma, uncomplicated; G47.30 Sleep apnea, unspecified; E66.9 Obesity, unspecified; Z98.890 Other specified postprocedural states; Z88.8 Allergy status to other drugs, medicaments and biological substances; Z79.899 Other long term (current) drug therapy; Z88.5 Allergy status to narcotic agent; Z90.49 Acquired absence of other specified parts of digestive tract; Z79.4 Long term (current) use of insulin; Z79.84 Long term (current) use of oral hypoglycemic drugs; Z20.822 Contact with and (suspected) exposure to COVID-19
CPT/HCPCS: 36415; 80048; 82947; 85025; 93005; 99285; A0425; A0429; G0378; J7042; U0002

== ENCOUNTER 2021-06-28 08:40 | Emergency (ER) | payer MEDICARE | END 2021-06-28 11:51 | disposition home or self-care (01) | LOC: LB.ED 08:40 | DX: H81.10 Benign paroxysmal vertigo, unspecified ear (principal); K21.9 Gastro-esophageal reflux disease without esophagitis; E11.9 Type 2 diabetes mellitus without complications; E66.9 Obesity, unspecified; Z68.30 Body mass index [BMI] 30.0-30.9, adult; Z95.1 Presence of aortocoronary bypass graft; Z88.5 Allergy status to narcotic agent; Z88.8 Allergy status to other drugs, medicaments and biological substances; Z79.4 Long term (current) use of insulin; Z79.899 Other long term (current) drug therapy; Z79.82 Long term (current) use of aspirin | CPT/HCPCS: 36415; 70450; 71045; 80048; 80307; 81001; 84484; 85025; 87086; 93005; 99283; 99284-25; A9270-GY ==